=== PATIENT | male | born 1960 | race Two or more races ===

== ENCOUNTER 2016-07-17 12:28 | Emergency (ER) | payer OTHER ==
--- NOTE | 2016-07-17 13:00 | ED ---
Skin Complaint - HPI Summary HPI Summary: Patient was seen at [facility] two days ago for a tick he found. The tick was not engorged and was only attached for approximately 2 hours. He was given a dose of doxycycline which he took today and vomited. He is concerned he needs another antibiotic. He denies rash, fever, chills or joint pain. - History of Current Complaint Chief Complaint: EDRashSkinAbscess Time Seen by Provider: 07/17/16 12:43 Stated Complaint: TICK BITE Hx Obtained From: Patient Onset/Duration: Started Hours Ago Skin Exposure Onset/Duration: Hours Ago Timing: Intermittent Onset Severity: Mild Current Severity: None Pain Intensity: 0 Aggravating Symptom(s): Nothing Alleviating Symptom(s): Nothing Associated Signs & Symptoms: Negative Related History: Possible Reaction to: Insect - Allergy/Home Medications Allergies/Adverse Reactions: Allergies Allergy/AdvReac Type Severity Reaction Status Date / Time Penicillins Allergy Severe Rash Verified 07/17/16 12:31 PMH/Surg Hx/FS Hx/Imm Hx Previously Healthy: Yes Endocrine/Hematology History: Denies: Hx Anticoagulant Therapy Infectious Disease History: No Infectious Disease History: Denies: Traveled Outside the [place] in Last 30 Days - Family History Known Family History: Positive: None - Social History Occupation: Employed Full-time Lives: With Family Alcohol Use: None Substance Use Type: Reports: None Smoking Status (MU): Heavy Every Day Tobacco Smoker Cessation Counseling: Patient Advised to Stop Review of Systems All Other Systems Reviewed And Are Negative: Yes Physical Exam Triage Information Reviewed: Yes Vital Signs On Initial Exam: Initial Vitals Temp Pulse Resp BP Pulse Ox 98.7 F 108 16 140/88 99 07/17/16 12:31 07/17/16 12:31 07/17/16 12:31 07/17/16 12:31 07/17/16 12:31 Vital Signs Reviewed: Yes Appearance: Positive: Well-Appearing, No Pain Distress, Well-Nourished Skin: Positive: Warm, Skin Color Reflects Adequate Perfusion, Dry, Soft, Erythema @ - pinpoint area of erythema without drainage Head/Face: Positive: Normal Head/Face Inspection Eyes: Positive: EOMI, JUSTYNA, Conjunctiva Clear ENT: Positive: Hearing grossly normal Respiratory/Lung Sounds: Positive: Breath Sounds Present Cardiovascular: Positive: RRR Musculoskeletal: Positive: Strength/ROM Intact. Negative: Edema Left, Edema Right Neurological: Positive: Sensory/Motor Intact, Alert, Oriented to Person Place, Time, NV Bundle Intact Distally, Normal Gait Psychiatric: Positive: Affect/Mood Appropriate AVPU Assessment: Alert Diagnostics - Vital Signs Vital Signs Temp Pulse Resp BP Pulse Ox 07/17/16 12:41 98.7 F 108 16 140/88 99 07/17/16 12:31 98.7 F 108 16 140/88 99 - Laboratory Lab Statement: Any lab studies that have been ordered have been reviewed, and results considered in the medical decision making process. Course/Dx - Course Course Of Treatment: I discussed with the patient that he should not need another antibiotic because the tick was attached for less than 36 hours, and was not engorged. I encouraged him to watch for signs of Lyme disease and follow -up as needed. - Differential Diagnoses - Skin Complaint Differential Diagnoses: Abscess, Angioedema, Cellulitis, Foreign Body, Local Allergic Reaction, MRSA, Tick Born Illness, Urticaria - Diagnoses Provider Diagnoses: Tick bite Discharge - Discharge Plan Condition: Stable Disposition: HOME Patient Education Materials: Tick Bite (ED) Referrals: No Primary Care Phys,NOPCP [Primary Care Provider] - Additional Instructions: Please follow-up with your primary care provider if your develop symptoms that are consistent with Lyme disease.
[2016-07-17 13:01] VITALS: BP 120/70
== END 2016-07-17 12:57 | disposition home or self-care (01) ==
LOC: ED 12:28
DX: S30.861A Insect bite (nonvenomous) of abdominal wall, initial encounter (principal); W57.XXXA Bitten or stung by nonvenomous insect and other nonvenomous arthropods, initial encounter; Y93.9 Activity, unspecified; Y92.9 Unspecified place or not applicable; Y99.9 Unspecified external cause status; F17.210 Nicotine dependence, cigarettes, uncomplicated
CPT/HCPCS: 99281

== ENCOUNTER 2018-02-01 08:19 | Inpatient (IN) | payer OTHER ==
[2018-02-01] MEDS ORDERED: NS 0.9% 500 ML* 500 ML IV ONE (08:38)
--- NOTE | 2018-02-01 08:39 | ED ---
Abdominal Pain/Male - HPI Summary HPI Summary: Patient is a 57-year-old male who presents to emergency department for abdominal distention and shortness of breath times several weeks. Patient is homeless and [place] in [place]. Pt. does not have a PCP and has not seen a doctor in years. Pt. admits to a history of heavy alcohol use and states he stopped drinking about 1-2 weeks ago. Pt. denies fever, chills, N/V, CP. Notes SOB and leg swelling. Symptoms are moderate in severity. Activity makes sxs worse. Nothing makes symptoms better. He has no known past medical hx. - History of Current Complaint Chief Complaint: EDAbdPain Stated Complaint: LEG SWELLING/ABD BLOATING Time Seen by Provider: 02/01/18 08:33 Hx Obtained From: Patient Pain Intensity: 9 - Allergies/Home Medications Allergies/Adverse Reactions: Allergies Allergy/AdvReac Type Severity Reaction Status Date / Time Penicillins Allergy Rash Verified 02/01/18 08:31 Home Medications: Home Medications NK [No Home Medications Reported] 02/01/18 [History Confirmed 02/01/18] PMH/Surg Hx/FS Hx/Imm Hx Previously Healthy: Yes Endocrine/Hematology History: Denies: Hx Anticoagulant Therapy Infectious Disease History: No Infectious Disease History: Denies: Traveled Outside the [place] in Last 30 Days - Family History Known Family History: Positive: None, Non-Contributory - Social History Occupation: Unemployed Lives: Alone Alcohol Use: None Substance Use Type: Reports: None Smoking Status (MU): Heavy Every Day Tobacco Smoker Review of Systems Constitutional: Negative Negative: Fever, Chills Eyes: Negative ENT: Negative Cardiovascular: Negative Negative: Palpitations, Chest Pain Positive: Shortness Of Breath. Negative: Cough Positive: Abdominal Pain. Negative: Vomiting, Diarrhea, Nausea Genitourinary: Negative Musculoskeletal: Negative Skin: Negative Neurological: Negative All Other Systems Reviewed And Are Negative: Yes Physical Exam Triage Information Reviewed: Yes Vital Signs On Initial Exam: Initial Vitals Temp Pulse Resp BP Pulse Ox 98.4 F 117 18 129/94 100 02/01/18 08:24 02/01/18 08:24 02/01/18 08:24 02/01/18 08:24 02/01/18 08:24 Vital Signs Reviewed: Yes Appearance: Positive: Ill-Appearing - Pt. sitting up in bed, appears SOB with speaking. Skin is jaundice appearing. Skin: Positive: Warm, Dry Head/Face: Positive: Normal Head/Face Inspection Eyes: Positive: EOMI, Other: - Icterus bilaterally. Neck: Positive: Supple Respiratory/Lung Sounds: Positive: Other - Mild diffuse expiratory wheeze throughout. Cardiovascular: Positive: Tachycardia Abdomen Description: Positive: Other: - Abdomen is markedly distended and firm. Musculoskeletal: Positive: Other - Plus 2 pitting edema bilaterally. Procedures - Procedure Summary Procedure Summary: Abdominal paracentesis: Procedure performed with Dr. Corado. Consent was obtained. Pt. was placed in supine position. Right lower quadrant was cleaned and sterilely prepped. 5 cc 1% lidocaine used to anesthetize skin. Small, 0.5cm incision made superficially. Guide wire and catheter advanced. Sharif fluid was aspirated and guide wire removed. 3 L of sharif fluid drained. Specimen sent to lab. Catheter was removed and dressing placed. Pt. tolerated well. Albumin ordered. Diagnostics - Vital Signs Vital Signs Temp Pulse Resp BP Pulse Ox 02/01/18 08:24 98.4 F 117 18 129/94 100 - Laboratory Result Diagrams: 02/01/18 14:20 02/01/18 08:59 Lab Statement: Any lab studies that have been ordered have been reviewed, and results considered in the medical decision making process. Abdominal Pain Fem Course/Dx - Course Course Of Treatment: Pt. presenting with obvious abd. ascites and jaundice. He is afebrile. BP stable. Tachy in the one teens to twenties. Pt. examined by Dr. Corado as well. Will perform abd. paracentesis for fluid evaluation and for symptomatic relief. Paracentesis performed as noted above. IV albumin ordered. Will also cover with antibx for possible SBP. Hospitalist was consulted, Dr. Galvez, who has accepted admission. Pt. has remained stable in the ED. Labs show mild anemia. Normal WBC. Mildly elevate liver enzymes. Total bilirubin is 17. ECG done at 0852 shows a sinus tachycardia 108bpm, normal axis, appropriate intervals, no ST elevation or depression. CT abd./pelvis per radiology: IMPRESSION: 1. HETEROGENEOUS LOW-ATTENUATION LIVER. THIS LIKELY REPRESENTS HETEROGENEOUS CIRRHOTIC. CHANGE, THOUGH HETEROGENEOUS FATTY INFILTRATION AND INFILTRATIVE NEOPLASM MAY GIVE A. SIMILAR APPEARANCE. RECOMMEND CONSIDERATION OF FURTHER EVALUATION WITH CONTRAST-ENHANCED. MRI OF THE ABDOMEN IN THE NONACUTE SETTING. 2. EVIDENCE OF PORTAL HYPERTENSION, WITH RECANALIZATION OF THE UMBILICAL VEIN. 3. 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
[2018-02-01 09:10] LABS: ABS Basophils 0.1 10^3/ul (0-0.2); ABS Eosinophils 0 10^3/ul (0-0.6); ABS Lymphocytes 0.7 10^3/ul (1.0-4.8); ABS Monocytes 0.8 10^3/ul (0-0.8); ABS Nucleated RBC 0 10^3/ul; Eosinophil % 0.5 % (0-6); Hematocrit 36 % (42-52); Hemoglobin 12.1 g/dl (14.0-18.0); Lymphocyte % 8.1 % (25-47); Mean Corpuscular HGB Conc 34 g/dl (31-36); Mean Corpuscular Hemoglobin 34 pg (27-31); Mean Corpuscular Volume 99 fL (80-94); Mean Platelet Volume 8.4 fL (7.4-10.4); Nucleated Red Blood Cells % 0; Platelet Count 138 10^3/ul (150-450); Red Blood Count 3.62 10^6/ul (4.00-5.40); Red Cell Distribution Width 17 % (10.5-15); White Blood Count 8.6 10^3/ul (3.5-10.8)
[2018-02-01 09:34] LABS: EGFR Non-African American 63.4 (>60)
[2018-02-01] MEDS ORDERED: Albumin Human 5%* 12.5 GM/250 ML BTL IV ONE (09:51)
[2018-02-01] MEDS ORDERED: Iohexol 300* (CONTRAST) 10 ML SDV IV ONE (10:03)
[2018-02-01] MEDS ORDERED: Levofloxacin 750 MG IVPREMIX(* 750 MG/150 ML BAG IVPB ONE (10:10)
[2018-02-01] MEDS ORDERED: metroNIDAZOLE IV 500 MG/100ML* 500 MG/100 ML BAG IVPB ONE (10:11)
--- NOTE | 2018-02-01 10:41 | ED ---
Progress - Progress Note Progress Note: I supervised the PA and performed a history and physical exam. Pt is an alcoholic with respiratory difficulty and grossly distended abdomen. A physical exam revealed jaundice, icterus, heavy ascites in abdomen, LE edema, and minimal distress. Performed a paracentesis. Admit to Dr. Galvez for liver failure. Course/Dx - Course Course Of Treatment: I supervised the care of the physician events and promotions assistant and I personally performed mora aspects of the procedure. I was present throughout the mora portions of the procedure - Diagnoses Provider Diagnoses: Cirrhosis of liver with ascites, Ascites - Provider Notifications Discussed Care Of Patient With: Judi Galvez Time Discussed With Above Provider: 10:00 Instructed by Provider To: Admit As Inpatient Discharge - Sign-Out/Discharge Documenting (check all that apply): Patient Departure - Admit - Discharge Plan Condition: Fair Disposition: ADMITTED TO [facility] - Billing Disposition and Condition Condition: FAIR Disposition: Admitted to [facility] - Attestation Statements Document Initiated by Scribe: Yes Documenting Scribe: Yanet Haley Provider For Whom Trinidadibe is Documenting (Include Credential): Denis Corado MD Scribe Attestation: Yanet Monzon, scribed for Denis Corado MD on 02/01/18 at 1909. Scribe Documentation Reviewed: Yes Provider Attestation: The documentation as recorded by the Yanet esquivel accurately reflects the service I personally performed and the decisions made by me, Denis Corado MD
[2018-02-01] MEDS ORDERED: oxyCODONE/Acetamin 5/325 MG* TAB PO ONE (11:46)
[2018-02-01] MEDS ORDERED: Albuterol 2.5 MG/3 ML NEB.SOL* (0.083%) INH PRN (11:47)
[2018-02-01] MEDS ORDERED: LORazepam TAB(*) 1 MG PO SCH (12:00)
[2018-02-01 12:21] LABS: INR 1.52 (0.77-1.02)
[2018-02-01] MEDS ORDERED: Morphine VIAL* 4 MG/ML VIAL (1 ml vial) IV PRN (13:51)
[2018-02-01] MEDS: Furosemide IV* 10 MG/ML 2 ML VIAL (20 MG) IV SLOW PU SCH (14:12)
[2018-02-01 14:55] LABS: Hematocrit 32 % (42-52)
[2018-02-01] MEDS: Heparin VIAL(*) 5000 UNITS/ML VIAL (FIVE THOUSAND) SUBCUT SCH ×2 (15:18→21:26)
[2018-02-01 16:23] LABS: Urine Appearance Clear; Urine Blood Negative (Negative); Urine Color Yellow; Urine Ketones Negative (Negative); Urine Protein Negative (Negative); Urine Specific Gravity 1.008 (1.010-1.030); Urine Urobilinogen Negative (Negative)
--- NOTE | 2018-02-01 19:08 | HP ---
AMENDED REPORT NOW INCLUDES DESIGNATED COSIGNER CC: Dr. Walter; Dr. Lainez * HISTORY AND PHYSICAL: DATE OF ADMISSION: 02/01/18 PRIMARY CARE PROVIDER: None. ATTENDING PHYSICIAN WHILE IN THE HOSPITAL: Judi Gonzalez MD * (report dictated by Cuong Solano NP). CONSULTING SURGEON: Dr. Walter. CONSULTING BOOKKEEPING CLERKS SUPERVISOR: Dr. Lainez. CHIEF COMPLAINT: "My abdomen is swollen." HISTORY OF PRESENTING ILLNESS: Mr. Nixon is a 57-year-old male patient, who his homeless and currently [place] the [place] here in [place]. He does not seek medical care. He basically says that he presents today because over the last 6 to 7 days, he has noted his belly has been getting more progressively bigger. His legs have been getting more swollen. He says he has been having a hard time taking a deep breath because of the size of his abdomen. He denied having any pain. He says he just feels a lot of pressure from the size of it. He denied any nausea, vomiting, or diarrhea. No fevers, or chills. He does state that it is harder for him to take a deep breath. He also admits to coughing up green sputum particularly in the morning and this has been worse over the last several days. He denied having any chest pain. He denied any orthopnea, but he does admit to shortness of breath, particularly with exertion. He was concerned because of his abdomen was just getting more swollen with swollen legs, and he came into the emergency department today. He does admit to stating that he did drink a glass of wine with dinner last night. He does state that his last time drinking, though previously when I asked him initially he responded it was 3 weeks ago, and that he typically only drinks 1 beer and then he said that shortly thereafter, he drinks 1 beer and sometimes a small bottle of gin with the beer on a daily basis. He denied ever having a history of DTs. Denied any IV drug use as well. He came in and was evaluated here in the ED, there was concern due to the ascites and it was noted that he appeared to have possible alcohol hepatitis. His bilirubin was very elevated. We were asked to evaluate for admission. PAST MEDICAL HISTORY: He denies. PAST SURGICAL HISTORY: He denies. HOME MEDICATIONS: Denied. ALLERGIES: His allergies to medications include PENICILLIN. FAMILY HISTORY: He says his mother is secondary to splenomegaly. He did not know what caused this splenomegaly. His father is alive and in [place], and to his knowledge he is healthy. SOCIAL HISTORY: He does admit to smoking about half a pack a day since he was 11 years old. He does state that he does drink a beer and gin nightly, but he said has not drunk in over 3 weeks, but then again, he said to me, he did have wine last night. He denied any IV drug use. Again, he is homeless. He does not appoint a surrogate decision maker at this point. REVIEW OF SYSTEMS: There is no documented fever. He denied having any significant weight change. There is no double vision. He denies having any ear discharge. There was no rhinorrhea, but he is admitting to a cough with mucopurulent-type sputum. He denied having any chest pain. He does admit to shortness of breath, particularly with exertion. He denies any abdominal pain. He does admit to have abdominal swelling. He denied having any fevers or again chills. No dysuria. No frequency. No seizure. No loss of consciousness. No pruritus, and no skin ulcerations. Review of 14 systems was completed, all others negative. PHYSICAL EXAMINATION GENERAL: At this time, Mr. Nixon is a 57-year-old male patient. He appears to be older than stated age. He appears to be dishevelled and unkempt. He does not appear to be in any acute distress. VITAL SIGNS: Blood pressure 113/77, pulse of 105, respirations were 24, his O2 saturation was 96% on room air, and his temperature was 98.4. HEENT: Head is atraumatic. Eyes: EOMs are intact. Sclerae again, there was icteric. Pupils are reactive to light. Throat: Oral mucosa appears to be moist. No oropharyngeal erythema. NECK: Supple. LUNGS: He did have rhonchi in the upper lobes. No wheezes or rales. HEART: Sounds S1, S2. Regular rate and rhythm with no murmurs, rubs, or gallops. ABDOMEN: percussion was dull. He does have obvious ascites. He has no tenderness with exception near the paracentesis site. He is tender. Bowel sounds were present, but distant and he does have distention of the abdominal vein. EXTREMITIES: Pulses were 2+. He is moving all 4 extremities. He does have +2 pitting edema bilaterally. NEUROLOGICALLY: He is awake. He is alert. He is oriented x3. His tongue is midline. His field operations coordinator were equal. He had no gross focal deficits. SKIN: His skin was intact. LABORATORY DATA/DIAGNOSTIC STUDIES: Labs, WBC of 8.6, RBC of 3.62, hemoglobin of 12.1, hematocrit of 36, his platelet count was 138. His INR is pending with his PTT was 38.5. His sodium was 133, potassium of 3.7, chloride 100, bicarb 26. BUN was 11, creatinine was 1.18, I do not have a baseline. Glucose was 95, lactic 1.4, calcium 8.3. His total bili was 17.8, AST 144, ALT 51, alk phos was 322. Troponin was 0.01. CRP is 77. Albumin of 2.6. His total white cell in his peritoneal fluid was 137, 12 neutrophils were noted. His toxicology alcohol level was pending. He did have imaging here in the ED. CT abdomen and pelvis showed heterogenous low attenuation liver likely represents heterogenous cirrhotic change. No heterogenous fatty infiltration and infiltrative neoplasm. Given similar appearance, recommend consideration for further evaluation with MRI of the abdomen with contrast in a nonacute setting. There was evidence of portal hypertension with re-cannulation of the umbilical vein and large amount of ascites were noted. He did have a chest x-ray obtained today, which showed low lung volumes, but no active cardiopulmonary disease was reported. His EKG was obtained today, and I do not have a previous for comparison, it does show a sinus tachycardia with a rate of 108. He had no ST elevation. He did have inversions in V4, but no acute changes were noted. No previous for comparison. Old medical records were again reviewed, but limited. ASSESSMENT AND PLAN: Mr. Nixon is a 57-year-old male patient coming into the ED today with complaints of more swelling of his abdomen. On evaluation, he was found to have possible alcoholic hepatitis. We were asked to evaluate for admission. He will be admitted under inpatient status for: 1. Hepatitis. Again, this appears to be related to alcohol use; however, I did touch base with GI, it seems to be more of a chronic picture based on lab work. We will go ahead and hold on steroids, but I will give him Lasix 20 IV daily with hold parameters. I have asked surgery to evaluate the patient either today or tomorrow for another paracentesis. We will repeat his bili tomorrow and his liver function test. We will get him on Lasix with hopefully adding possibly nadolol, possibly spironolactone, but I will get the input from the GI first. I am checking alcohol level. I would like to calculate his MELD score, but I need an INR, which I have ordered; and I am also going to check an acute hepatitis panel as well to make sure I am not dealing with hepatitis B or C, and again, we will have GI evaluate and I will continue to follow. 2. Alcoholism. Again, he does state that he does drink on a daily basis. He says he again in one breath he said that he drank 3 weeks, but then in another breath he said that he had wine last night. I have added on an alcohol level. I am going to have social work to see the patient and put him on the [facility] protocol as well and we will give him folic acid and again thiamine and folate for the patient, and continue to follow. 3. Social issues. I did touch base with social work. The patient is homeless , has no PCP, and will need help with this and also substance abuse counseling in form of alcohol and they are on board. 4. Tobacco abuse. I did offer smoking cessation and counseling. In addition to this, I offered nicotine replacement therapy, which he refused. 5. DVT prophylaxis. I have ordered heparin subcu. 6. Question of upper respiratory infection. Again, he is coughing up mucopurulent sputum. He did have rhonchi on exam. I am going to put him on Rocephin and azithro, and I will send of his sputum when able and we will check a flu swab. 7. Code status: Full code. 8. Fluid, electrolytes, and nutrition. He can have a clear liquid diet. TIME SPENT: Time spent on admission was 60 minutes, greater than half time spent [id number] with the patient, obtaining my history and physical, other half time was spent going over the plan of care with the patient and implementing the plan of care. I did discuss the plan of care with my attending, Dr. Gonzalez, she is in agreement. CUONG SOLANO, SATURATION DIVER [id number]/[facility] #: [id number] SONALI
[2018-02-01 20:13] LABS: Hematocrit 33 % (42-52); Hemoglobin 11.4 g/dl (14.0-18.0)
[2018-02-02] MEDS: Heparin VIAL(*) 5000 UNITS/ML VIAL (FIVE THOUSAND) SUBCUT SCH ×3 (06:37→20:35)
[2018-02-02 06:42] LABS: INR 1.8 (0.77-1.02)
[2018-02-02 07:42] LABS: ABS Basophils 0.1 10^3/ul (0-0.2); ABS Eosinophils 0.1 10^3/ul (0-0.6); ABS Lymphocytes 0.7 10^3/ul (1.0-4.8); ABS Monocytes 0.9 10^3/ul (0-0.8); ABS Neutrophils 4.9 10^3/ul (1.5-7.7); ABS Nucleated RBC 0 10^3/ul; Eosinophil % 0.9 % (0-6); Hematocrit 32 % (42-52); Hemoglobin 10.7 g/dl (14.0-18.0); Lymphocyte % 9.9 % (25-47); Mean Corpuscular HGB Conc 34 g/dl (31-36); Mean Corpuscular Hemoglobin 34 pg (27-31); Mean Corpuscular Volume 101 fL (80-94); Mean Platelet Volume 8.3 fL (7.4-10.4); Nucleated Red Blood Cells % 0.1; Platelet Count 94 10^3/ul (150-450); Red Blood Count 3.14 10^6/ul (4.00-5.40); Red Cell Distribution Width 17 % (10.5-15); White Blood Count 6.6 10^3/ul (3.5-10.8)
[2018-02-02] MEDS: Furosemide IV* 10 MG/ML 2 ML VIAL (20 MG) IV SLOW PU SCH (08:01)
[2018-02-02] MEDS: Thiamine TAB* 100 MG TAB PO SCH (08:13)
[2018-02-02] MEDS: cefTRIAXone(*) 1 GM in NS 0.9% 50 ML* 50 ML IVPB SCH (08:13)
[2018-02-02] MEDS: Folic Acid TAB* 1 MG PO SCH (08:13)
[2018-02-02] MEDS: Multivitamins/Minerals TAB PO SCH (08:13)
[2018-02-02] MEDS: Azithromycin IV(*) 500 MG in NS 0.9% 250 ML* 250 ML IVPB SCH (09:17)
--- NOTE | 2018-02-02 14:12 | BRIEFOPN ---
Brief Operative Note - Surgery Procedures: OPERATIVE REPORT PRE-OP: Ascites POST-OP: Same PROCEDURE:Therapeutic Paracentesis-3.5 liter of clear yellow/green fluid drained SURGEON: MD Jose Angel ANESTHESIA:Local ASST:none IVF:none EBL:trace SPECIMEN:none DRAIN: none WOUND CLASS:One COMPLICATIONS: none TO PACU
[2018-02-02] MEDS ORDERED: Morphine VIAL* 10 MG/ML 1 ML VIAL ONE (14:18)
--- NOTE | 2018-02-02 16:09 | CONS ---
CONSULTATION REPORT: DATE OF CONSULT: 02/01/18 REQUESTING PHYSICIAN: Cuong Solano NP INDICATION: Cirrhosis. NARRATIVE: Mr. Norris is a 57-year-old gentleman who is a resident of "[facility] in the [place] who presents to the emergency room with increased abdominal girth. He states that over the past week he has noticed that his abdomen is becoming larger in addition to his lower extremities. He states that he feels very distended and bloated and he is having some shortness of breath. He describes bloating but no pain, no nausea, no vomiting. He denies any change in his bowel habits. No blood in his stool. No black or tarry stools. He denies any confusion. He is an alcoholic who has had withdrawal symptoms in the past. PAST MEDICAL HISTORY: None other than alcoholism. PAST SURGICAL HISTORY: The patient denies any surgeries in the past. MEDICATIONS: None. ALLERGIES: He tells me PENICILLIN. FAMILY HISTORY: Pretty much unknown at this time. He believes his mother had an enlarged spleen. He is unsure if there are any medical issues with his father. SOCIAL HISTORY: He smokes tobacco. He drinks alcohol. He is homeless. REVIEW OF SYSTEMS: Twelve systems were reviewed other than that mentioned in the HPI were unremarkable. PHYSICAL EXAM: Temperature is 97.7, blood pressure is 100/58, pulse of 95, respiratory rate of 16, O2 sat is 99%. General: Dishevelled appearing male, appears older than stated age. Alert, oriented, pleasant, fluent. HEENT: Mucous membranes are moist without lesions, ulcers, or exudate. Neck is supple. Trachea is midline. Dentition is poor. Lungs: Good breath sounds bilaterally. No wheezes, rales, or rhonchi. Heart: Regular, rate and rhythm. Abdomen: Dull flanks, positive bowel sounds, soft, mildly tender. No masses. No hepatosplenomegaly palp. Extremities: Lower extremity 1 to 2+ edema. No rashes. Neuro: No asterixis. DIAGNOSTIC STUDIES/LAB DATA: Of note, white count is 8.6, hemoglobin is 12.1, platelets of 138, INR is 1.52. Chemistry shows a sodium of 133, creatinine of 1.18. His bilirubin is 17.8. AST is 144, ALT is 51, alk phos is 322. C-reactive protein is 77. He did have a paracentesis which shows 137 white blood cells, 9 rbc's, neutrophils of 12. He also had a CT abdomen and pelvis which revealed a heterogenous low attenuation liver cirrhosis likely fatty infiltration, potentially portal hypertension, large amount of ascites. ASSESSMENT AND PLAN: Mr. Norris is a 57-year-old gentleman who has cirrhosis likely secondary to alcoholism. He continues to drink. Regarding his ascites, he has had a paracentesis. I would recommend we attempt diuretics; however, we need to watch his kidney function closely. There is no evidence of encephalopathy. No evidence of active GI bleeding. At some point, he will need an upper endoscopy to evaluate for varices. He also needs to abstain from alcohol. Unfortunately, he is homeless and that may be the biggest determent to his health at this point. We will continue to follow along. [id number]/[facility] #: [id number] SONALI
--- NOTE | 2018-02-02 16:31 | PN ---
Subjective Date of Service: 02/02/18 Interval History: Patient seen today, he continues to have increase discomfort of his abdominal distentions. no signs of withdrawal. He states he has not had a drink for 6 weeks. S/p 3 liters paracentesis yesterday. I discussed case with Dr. Walter and will kindly attempt to remove at least another 3 liters today. Patient has no fever no rebound. Taking po and the patient is inquiring about SSI benefit Past Medical History: Unchanged from Admission Objective Active Medications: Albuterol (Ventolin 2.5 Mg/3 Ml Neb.Kiara*) 2.5 mg INH Q2H PRN PRN Reason: SOB/WHEEZING Folic Acid (Folvite Tab*) 1 mg PO DAILY [facility] Last Admin: 02/02/18 08:13 Dose: 1 mg Furosemide (Lasix Tab*) 40 mg PO DAILY [facility] Heparin Sodium (Porcine) (Heparin Vial(*)) 5,000 units SUBCUT Q12HR [facility] Ceftriaxone Sodium 1 gm/ (Sodium Chloride) 50 mls @ 200 mls/hr IVPB Q24H [facility] Last Admin: 02/02/18 08:13 Dose: 200 mls/hr Azithromycin 500 mg/ Sodium (Chloride) 250 mls @ 250 mls/hr IVPB Q24H [facility] Last Admin: 02/02/18 09:17 Dose: 250 mls/hr Albumin Human (Albumin Human 25%*) 25 gm in 100 mls @ 100 mls/hr IV Q6H [facility] Stop: 02/03/18 16:59 Lorazepam (Ativan Tab(*)) 0 - 6 mg PO .PER [facility] PROTOCOL [facility]; Protocol Multivitamins/Minerals (Theragran/Minerals Tab*) 1 tab PO DAILY [facility] Last Admin: 02/02/18 08:13 Dose: 1 tab Pantoprazole Sodium (Protonix Tab (Nf)) 40 mg PO DAILY [facility] Spironolactone (Aldactone Tab*) 25 mg PO BEDTIME [facility] Thiamine HCl (Vitamin B-1 Tab*) 100 mg PO DAILY [facility] Last Admin: 02/02/18 08:13 Dose: 100 mg Vital Signs - 8 hr 02/02/18 02/02/18 11:25 14:45 Temperature 98.9 F 99.7 F Pulse Rate 102 101 Respiratory 18 16 Rate Blood Pressure 94/61 98/64 (mmHg) O2 Sat by Pulse 99 100 Oximetry Oxygen Devices in Use Now: None Appearance: Awake, alert. no acute distress Eyes: - - Icteric sclera, EOMI Ears/Nose/Mouth/Throat: - - poor dentition Neck: Trachea Midline Respiratory: - - crackles and bases. no wheezing Cardiovascular: NL Sounds; No Murmurs; No JVD, RRR Abdominal: - - distended. ascites and positive caput medusa suggestive of portal hypertension Extremities: - - + 3 edema Neurological: Alert and Oriented x 3 Result Diagrams: 02/02/18 05:53 02/02/18 05:53 Microbiology and Other Data: Microbiology 02/01/18 09:10 Aerobic Blood Culture - Preliminary Blood Venous No Growth Day 1 Anaerobic Blood Culture - Preliminary No Growth Day 1 02/01/18 09:22 Sterile Body Fluid Culture - Preliminary Paracentesis Fluid No Growth Day 1 Sterile Body Fluid Culture - Preliminary No Growth Day 1 Gram Stain - Final Body Fluid Culture - Final 02/01/18 08:59 Aerobic Blood Culture - Preliminary Blood Venous No Growth Day 1 Anaerobic Blood Culture - Preliminary No Growth Day 1 02/02/18 03:15 Gram Stain - Final Sputum 02/01/18 12:30 Legionella Urinary Antigen - Final Urine Negative Legionella Antigen Streptococcus pneumoniae Ag Screen - Final Negative S. pneumo Antigen 02/01/18 12:30 Influenza Types A,B Antigen - Final Nasal Specimen received for Influenza A/B Molecular testing Assess/Plan/Problems-Billing Assessment: 57 y/o male homeless presented to our ED for increase leg edema, increase abdominal girth with known history of chronic ETOH abuse admitted for decompensated liver cirrhosis with no prior active medical care - Patient Problems (1) Liver cirrhosis, alcoholic Current Visit: Yes Status: Acute Code(s): K70.30 - ALCOHOLIC CIRRHOSIS OF LIVER WITHOUT ASCITES SNOMED Code(s): 603426144 Comment: - this is his first admission for his diagnosis - Patient denies any outpatient medical care. He has very poor support system which makes his ESLD treatment very complicated. - Nonetheless, I initiate treatment with Lasix 40 mg daily and aldactone 25 mg daily. - Agree to continue with MVI/Thiamine/Folate - I discussed with our resident care spec to help assist with medications coverage, PCP follow up, and SSI benefit - I did speak to Dr Aleman from [facility] elastic yarn twister helper and I reviewed his case. He agreed with the above and recommended to implement albumin infusion to help mobilize his ascite until albimin 3.5 or greater is achieve. I placed him on albumin 25% Q6hrs. this will need to be revisited daily. He does not think the patient will be a candidate until he does have good social support and abstein form ETOH at least 6 months. However; he kindly and recommended to refer him to his outreach clinic in [place] for hepatic care management. Appointment can be made via [facility] transplant center to set up appointment with Dr. Aleman clinic in [place] once discharged. (2) Ascites due to alcoholic cirrhosis Current Visit: Yes Status: Acute Code(s): K70.31 - ALCOHOLIC CIRRHOSIS OF LIVER WITH ASCITES SNOMED Code(s): 9646452710040031 Comment: - secondary to alcohol cirrhosis - s/p paracentesis 02/01 (3 L); 02/02/18 (3.5 L) - Implemented today 02/02/18 Lasix, aldactone and albumin infusion as outline in the cirrhosis plan - I did implement protonix for GI prophylaxis as he does have caput medusa suggestive of portal hypertension and the likely he does have esophageal varices. Once and if BP can tolerate we may need to add propranol (3) Homeless Current Visit: Yes Status: Acute Code(s): Z59.0 - HOMELESSNESS SNOMED Code (s): 91953902 Comment: - social consult. I am not sure if it can take place or not but he would be a good candidate for placement if agreable and it may help acheive two goals (social support and abstence from alcohol) (4) DVT prophylaxis Current Visit: Yes Status: Acute Code(s): NHS6889 - SNOMED Code(s): 842357632 Comment: - I decreased his heparin to bid and if H/H or platelet drop we may need to discontinue and encourage ambulations
[2018-02-02] MEDS ORDERED: Albumin Human 25%* 25 GM/100 ML BTL IV SCH (17:00)
[2018-02-02] MEDS ORDERED: Furosemide TAB* 40 MG PO SCH (17:00)
[2018-02-02] MEDS: Albumin Human 25%* 25 GM/100 ML BTL IV SCH (19:08)
[2018-02-02] MEDS: Omeprazole CAP* 20 MG PO SCH (20:34)
[2018-02-02] MEDS ORDERED: Spironolactone TAB* 25 MG PO SCH (21:00)
[2018-02-02] MEDS ORDERED: Potassium Chlor TAB* 20 MEQ TAB.ER PO ONE (21:45)
[2018-02-02] MEDS: Furosemide TAB* 40 MG PO SCH (22:26)
[2018-02-03] MEDS: Albumin Human 25%* 25 GM/100 ML BTL IV SCH ×4 (01:09→20:52)
[2018-02-03 06:23] LABS: ABS Basophils 0.1 10^3/ul (0-0.2); ABS Eosinophils 0.1 10^3/ul (0-0.6); ABS Lymphocytes 0.7 10^3/ul (1.0-4.8); ABS Monocytes 0.8 10^3/ul (0-0.8); ABS Neutrophils 4.4 10^3/ul (1.5-7.7); ABS Nucleated RBC 0 10^3/ul; Eosinophil % 1.4 % (0-6); Hematocrit 30 % (42-52); Hemoglobin 10.3 g/dl (14.0-18.0); Lymphocyte % 11.5 % (25-47); Mean Corpuscular HGB Conc 35 g/dl (31-36); Mean Corpuscular Hemoglobin 35 pg (27-31); Mean Corpuscular Volume 100 fL (80-94); Mean Platelet Volume 7.9 fL (7.4-10.4); Nucleated Red Blood Cells % 0; Platelet Count 90 10^3/ul (150-450); Red Blood Count 2.99 10^6/ul (4.00-5.40); Red Cell Distribution Width 17 % (10.5-15)
[2018-02-03 06:45] LABS: EGFR Non-African American 69.5 (>60)
[2018-02-03] MEDS: Heparin VIAL(*) 5000 UNITS/ML VIAL (FIVE THOUSAND) SUBCUT SCH ×2 (08:31→20:53)
[2018-02-03] MEDS: Folic Acid TAB* 1 MG PO SCH (08:32)
[2018-02-03] MEDS: Multivitamins/Minerals TAB PO SCH (08:33)
[2018-02-03] MEDS: Omeprazole CAP* 20 MG PO SCH (08:33)
[2018-02-03] MEDS: Furosemide TAB* 40 MG PO SCH (08:33)
[2018-02-03] MEDS: Thiamine TAB* 100 MG TAB PO SCH (08:33)
[2018-02-03] MEDS: cefTRIAXone(*) 1 GM in NS 0.9% 50 ML* 50 ML IVPB SCH (09:16)
[2018-02-03] MEDS: Azithromycin IV(*) 500 MG in NS 0.9% 250 ML* 250 ML IVPB SCH (10:21)
--- NOTE | 2018-02-03 11:13 | OP ---
DATE OF OPERATION: 02/02/18 - ROOM #415 DATE OF : 58 SURGEON: Donell Walter MD ANESTHESIA: 1% lidocaine. PRE-OP DIAGNOSIS: Ascites. POST-OP DIAGNOSIS: Ascites. OPERATIVE PROCEDURE: Therapeutic paracentesis with drainage of little over 3 L of yellow/greenish clear fluid. ESTIMATED BLOOD LOSS: Trace. SPECIMENS: None. DRAINS: None. WOUND CLASSIFICATION: I. BRIEF HISTORY: Mr. Semaj Norris is a 57-year-old gentleman who presented to the emergency room with abdominal distention and discomfort and noted to have a bilirubin of 18. He has a history of alcohol abuse and a CT scan showed marked amount of ascites and also findings probably consistent with cirrhosis. He has had 3 L of fluid drained from his abdominal cavity yesterday and a second request for more drainage was requested by the hospitalist service. The procedure was discussed with the patient and the risks of, but not limited to, bleeding, infection, intraabdominal bowel and visceral injury, sepsis/ peritonitis and discomfort were all explained. DESCRIPTION OF PROCEDURE: The abdomen was marked with indelible ink and preoperative consent was obtained. He was placed in the slight sitting upright position in the supine position. Bedside ultrasound was then performed, which showed a large amount of ascitic fluid mainly in the right and the left lower quadrants of the abdomen. I chose the right lower quadrant and this area was prepped and draped in the usual sterile fashion. A time-out verification was completed. 1% lidocaine with epinephrine was infiltrated into the entire thickness of the abdominal wall and a small carolina was made with 11-blade knife in the skin. A 8-Slovak catheter over the needle was then passed into the abdominal cavity under aspiration until the fluid was aspirated. The catheter was fed in the abdominal cavity as the needle was withdrawn and the catheter tubing was attached to the suction canisters and a little over 3 L of greenish yellowish fluid was drained. Once this was complete, the catheter was removed. Firm pressure was held to achieve hemostasis. Once this was done, a sterile Band-Aid was applied. The patient tolerated the procedure well. [id number]/CPS #: [id number] MTDD
[2018-02-03] MEDS ORDERED: Potassium Chloride LIQUID* 20 MEQ PACKET PO SCH (11:25)
[2018-02-03] MEDS ORDERED: Potassium Phosphate IV* 10 MMOLE in NS 0.9% 250 ML* 250 ML IVPB ONE (12:00)
--- NOTE | 2018-02-03 16:00 | PN ---
Subjective Date of Service: 02/03/18 Interval History: Patient is feeling well. Decreased distention, increased ability to take a deep breath. Patient has leaking from one of his paracentesis sites. Patient states a continued commitment to alcohol abstinence. Patient denies F/C, N/V, CP, SOB, dizziness, dysuria. Patient states his urine is improving in clarity and increasing in frequency. Patient understands the limitations on the possibility of liver transplantation. Past Medical History: Unchanged from Admission Objective Active Medications: Al Hydrox/Mg Hydrox/Simethicone (Maalox Plus*) 30 ml PO Q6H PRN PRN Reason: INDIGESTION Albuterol (Ventolin 2.5 Mg/3 Ml Neb.Kiara*) 2.5 mg INH Q2H PRN PRN Reason: SOB/WHEEZING Folic Acid (Folvite Tab*) 1 mg PO DAILY [facility] Last Admin: 02/03/18 08:32 Dose: 1 mg Furosemide (Lasix Tab*) 20 mg PO DAILY [facility] Heparin Sodium (Porcine) (Heparin Vial(*)) 5,000 units SUBCUT Q12HR [facility] Last Admin: 02/03/18 08:31 Dose: 5,000 units Ceftriaxone Sodium 1 gm/ (Sodium Chloride) 50 mls @ 200 mls/hr IVPB Q24H [facility] Last Admin: 02/03/18 09:16 Dose: 200 mls/hr Azithromycin 500 mg/ Sodium (Chloride) 250 mls @ 250 mls/hr IVPB Q24H [facility] Last Admin: 02/03/18 10:21 Dose: 250 mls/hr Potassium Phosphate 10 mmole/ (Sodium Chloride) 253.3333 mls @ 42 mls/hr IVPB ONCE ONE Stop: 02/03/18 18:01 Last Admin: 02/03/18 12:24 Dose: 42 mls/hr Albumin Human (Albumin Human 25%*) 25 gm in 100 mls @ 100 mls/hr IV Q6H [facility] Multivitamins/Minerals (Theragran/Minerals Tab*) 1 tab PO DAILY [facility] Last Admin: 02/03/18 08:33 Dose: 1 tab Omeprazole (Prilosec Cap*) 20 mg PO DAILY [facility] Last Admin: 02/03/18 08:33 Dose: 20 mg Potassium Chloride (Klor-Con Liquid*) 40 meq PO DAILY [facility] Last Admin: 02/03/18 12:23 Dose: 40 meq Spironolactone (Aldactone Tab*) 50 mg PO BEDTIME [facility] Thiamine HCl (Vitamin B-1 Tab*) 100 mg PO DAILY [facility] Last Admin: 02/03/18 08:33 Dose: 100 mg Vital Signs - 8 hr 02/03/18 02/03/18 02/03/18 07:59 08:20 09:29 Temperature 99.1 F 98.5 F Pulse Rate 94 94 Respiratory 18 Rate Blood Pressure 105/59 93/68 (mmHg) O2 Sat by Pulse 100 Oximetry 02/03/18 09:47 Temperature 97.5 F Pulse Rate 86 Respiratory Rate Blood Pressure 96/57 (mmHg) O2 Sat by Pulse 98 Oximetry Oxygen Devices in Use Now: None Appearance: Patient is a 57yo male who appears older than stated age and is sitting in the bed in [facility]. Patient has signficant jaundice. Eyes: PERRLA, - - Icterus. Ears/Nose/Mouth/Throat: NL Teeth, Lips, Gums Neck: NL Appearance and Movements; NL JVP, Trachea Midline Respiratory: Symmetrical Chest Expansion and Respiratory Effort, Clear to Auscultation Cardiovascular: NL Sounds; No Murmurs; No JVD, RRR, - - 3+ Edema. Abdominal: - - Distended, Slightly tender, Gross hepatomegaly. Lymphatic: No Cervical Adenopathy Extremities: No Clubbing, Cyanosis Skin: No Nodules or Sclerosis, - - Leaking paracentesis site. Neurological: Alert and Oriented x 3, NL Sensation, NL Muscle Strength and Tone , - - CN II-XII intact. Result Diagrams: 02/03/18 05:44 02/03/18 05:44 Microbiology and Other Data: Microbiology 02/01/18 09:10 Aerobic Blood Culture - Preliminary Blood Venous No Growth Day 1 Anaerobic Blood Culture - Preliminary No Growth Day 1 02/01/18 09:22 Sterile Body Fluid Culture - Preliminary Paracentesis Fluid No Growth Day 1 Sterile Body Fluid Culture - Preliminary No Growth Day 1 Gram Stain - Final Body Fluid Culture - Final 02/01/18 08:59 Aerobic Blood Culture - Preliminary Blood Venous No Growth Day 1 Anaerobic Blood Culture - Preliminary No Growth Day 1 02/02/18 03:15 Gram Stain - Final Sputum 02/01/18 12:30 Legionella Urinary Antigen - Final Urine Negative Legionella Antigen Streptococcus pneumoniae Ag Screen - Final Negative S. pneumo Antigen 02/01/18 12:30 Influenza Types A,B Antigen - Final Nasal Specimen received for Influenza A/B Molecular testing Assess/Plan/Problems-Billing Assessment: 57 y/o male homeless presented to our ED for increase leg edema, increase abdominal girth with known history of chronic ETOH abuse admitted for decompensated liver cirrhosis with no prior active medical care who is S/P 2 paracenteses and is being started on diuretic therapy. - Patient Problems (1) Ascites due to alcoholic cirrhosis Current Visit: Yes Status: Acute Code(s): K70.31 - ALCOHOLIC CIRRHOSIS OF LIVER WITH ASCITES SNOMED Code(s): 3301285308661136 Comment: - Secondary to alcohol cirrhosis - S/P paracentesis 02/01 (3 L); 02/02/18 (3.5 L) - Diuretics started at 20 lasix and 50 spironolactone. - Continue PPI prophylaxis and soft diet - BP would not tolerate BB - Will need surveilance EGD for varices monitoring. - Albumin for goal albumin above 3.5. (2) Liver cirrhosis, alcoholic Current Visit: Yes Status: Acute Code(s): K70.30 - ALCOHOLIC CIRRHOSIS OF LIVER WITHOUT ASCITES SNOMED Code(s): 593175315 Comment: - New diagnosis - Patient denies any outpatient medical care. He has very poor support system which makes his ESLD treatment very complicated. - Begin diuresis as above - Agree to continue with MVI/Thiamine/Folate - Appreciate social work. Will establish with [facility]. - Discussed with Dr Aleman from [facility] - [place] charcoal unloader and reviewed his case. He recommended to implement albumin infusion to help mobilize his ascites until albimin 3.5 or greater is achieve. Continue albumin 25% Q6hrs. this will need to be revisited daily. - Patient will likely not be a candidate until he does have good social support and abstein form ETOH at least 6 months. - Will need close Hepatology follow up and referral to a transplant center when appropriate. (3) Homeless Current Visit: Yes Status: Acute Code(s): Z59.0 - HOMELESSNESS SNOMED Code (s): 72260201 Comment: - Social consult. Patient is pending insurance, housing and follow up plans. (4) Electrolyte abnormality Current Visit: Yes Status: Acute Code(s): E87.8 - OTH DISORDERS OF ELECTROLYTE AND FLUID BALANCE, NEC SNOMED Code(s): 742180433 Comment: - Hypokalemia and Hypophosphatemia - Replace IV (5) DVT prophylaxis Current Visit: Yes Status: Acute Code(s): USE1201 - SNOMED Code(s): 913388233 Comment: - Heparin Subq with platelets above 50K Status and Disposition: Inpatient. Requires close inpatient laboratory monitoring.
[2018-02-03] MEDS: Spironolactone TAB* 25 MG PO SCH (20:46)
[2018-02-03] MEDS: Al Hydrox/Mg Hydrox/Simet LIQ* 30 ML UDC PO PRN (21:26)
[2018-02-04] MEDS: Albumin Human 25%* 25 GM/100 ML BTL IV SCH ×3 (02:35→16:00)
[2018-02-04 06:34] LABS: Corrected Retic Count 1.5 % (0.5-1.5); Hematocrit for Retic CNT 32 % (42-52); Immature Retic Fraction 0.31; RBC Retic Count 3.17 10^6/ul (4.6-6.2)
[2018-02-04 06:37] LABS: ABS Basophils 0.1 10^3/ul (0-0.2); ABS Eosinophils 0.1 10^3/ul (0-0.6); ABS Lymphocytes 0.6 10^3/ul (1.0-4.8); ABS Monocytes 0.8 10^3/ul (0-0.8); ABS Neutrophils 4.6 10^3/ul (1.5-7.7); ABS Nucleated RBC 0 10^3/ul; Eosinophil % 1.6 % (0-6); Hematocrit 32 % (42-52); Hemoglobin 10.9 g/dl (14.0-18.0); Lymphocyte % 9.9 % (25-47); Mean Corpuscular HGB Conc 35 g/dl (31-36); Mean Corpuscular Hemoglobin 35 pg (27-31); Mean Corpuscular Volume 100 fL (80-94); Nucleated Red Blood Cells % 0; Platelet Count 90 10^3/ul (150-450); Red Blood Count 3.16 10^6/ul (4.00-5.40); Red Cell Distribution Width 17 % (10.5-15); White Blood Count 6.1 10^3/ul (3.5-10.8)
[2018-02-04] MEDS ORDERED: Potassium Chloride LIQUID* 20 MEQ PACKET PO SCH (09:00)
[2018-02-04] MEDS: Multivitamins/Minerals TAB PO SCH (09:45)
[2018-02-04] MEDS: Furosemide TAB* 20 MG PO SCH (09:45)
[2018-02-04] MEDS: Heparin VIAL(*) 5000 UNITS/ML VIAL (FIVE THOUSAND) SUBCUT SCH ×2 (09:45→21:38)
[2018-02-04] MEDS: Thiamine TAB* 100 MG TAB PO SCH (09:46)
[2018-02-04] MEDS: Omeprazole CAP* 20 MG PO SCH (09:46)
[2018-02-04] MEDS: Folic Acid TAB* 1 MG PO SCH (09:46)
[2018-02-04] MEDS: Hydrocortisone 1% CREAM* 30 GM TUBE TOPICAL PRN (09:47)
--- NOTE | 2018-02-04 14:20 | PN ---
Subjective Date of Service: 02/04/18 Interval History: HOSPITALIST PROGRESS NOTE Patient seen and examined at bedside. Care reviewed and d/w Radha Kelsey RN. He c/o LE itching, but feels his swelling and abdominal distention are improving. Family History: Unchanged from Admission Social History: Unchanged from Admission Past Medical History: Unchanged from Admission Objective Active Medications: Al Hydrox/Mg Hydrox/Simethicone (Maalox Plus*) 30 ml PO Q6H PRN PRN Reason: INDIGESTION Last Admin: 02/03/18 21:26 Dose: 30 ml Albuterol (Ventolin 2.5 Mg/3 Ml Neb.Kiara*) 2.5 mg INH Q2H PRN PRN Reason: SOB/WHEEZING Folic Acid (Folvite Tab*) 1 mg PO DAILY [facility] Last Admin: 02/04/18 09:46 Dose: 1 mg Furosemide (Lasix Tab*) 20 mg PO DAILY [facility] Last Admin: 02/04/18 09:45 Dose: 20 mg Heparin Sodium (Porcine) (Heparin Vial(*)) 5,000 units SUBCUT Q12HR [facility] Last Admin: 02/04/18 09:45 Dose: 5,000 units Hydrocortisone (Hytone Cream 1%*) 1 applic TOPICAL TID PRN PRN Reason: ITCHING Last Admin: 02/04/18 09:47 Dose: 1 applic Albumin Human (Albumin Human 25%*) 25 gm in 100 mls @ 100 mls/hr IV Q6H [facility] Stop: 02/04/18 15:29 Last Admin: 02/04/18 09:45 Dose: 100 mls/hr Multivitamins/Minerals (Theragran/Minerals Tab*) 1 tab PO DAILY [facility] Last Admin: 02/04/18 09:45 Dose: 1 tab Omeprazole (Prilosec Cap*) 20 mg PO DAILY [facility] Last Admin: 02/04/18 09:46 Dose: 20 mg Potassium Chloride (Klor-Con Liquid*) 40 meq PO BID [facility] Last Admin: 02/04/18 09:46 Dose: 40 meq Spironolactone (Aldactone Tab*) 50 mg PO BEDTIME [facility] Last Admin: 02/03/18 20:46 Dose: 50 mg Thiamine HCl (Vitamin B-1 Tab*) 100 mg PO DAILY [facility] Last Admin: 02/04/18 09:46 Dose: 100 mg Vital Signs - 8 hr 02/04/18 02/04/18 02/04/18 07:23 08:04 08:16 Temperature 98.3 F 97.3 F Pulse Rate 96 108 Respiratory 18 16 16 Rate Blood Pressure 117/68 112/70 (mmHg) O2 Sat by Pulse 100 99 Oximetry 02/04/18 02/04/18 09:57 10:24 Temperature 98.6 F 97.6 F Pulse Rate 93 94 Respiratory 16 16 Rate Blood Pressure 101/66 112/71 (mmHg) O2 Sat by Pulse 98 100 Oximetry Oxygen Devices in Use Now: None Appearance: Middle aged gentleman sitting up in bed in NAD. Eyes: No Scleral Icterus Ears/Nose/Mouth/Throat: Mucous Membranes Moist Neck: Trachea Midline Respiratory: Symmetrical Chest Expansion and Respiratory Effort, Clear to Auscultation Cardiovascular: RRR - Normal S1 and S2 Abdominal: - - Ascites is present, NT, BS+ Extremities: - - Bilateral moderate to severe LE pitting edema Neurological: Alert and Oriented x 3, NL Muscle Strength and Tone Result Diagrams: 02/04/18 06:07 02/04/18 06:07 Assess/Plan/Problems-Billing Assessment: Mr. Norris is a 57 y/o homeless M who presented to ED with c/o increased leg edema, increased abdominal girth with known history of chronic ETOH abuse admitted for decompensated liver cirrhosis with no prior active medical care. - Patient Problems (1) Ascites due to alcoholic cirrhosis Comment: - Secondary to alcoholic cirrhosis. - S/P paracentesis 02/01 (3 L); 02/02/18 (3.5 L). - Continue diuresis with Furosemide 20mg and Spironolactone 50mg. - Monitor I/Os and daily weights. (2) Liver cirrhosis, alcoholic Comment: - Continue MVI/Thiamine/Folate. - Case was discussed with Dr Aleman from [facility] director banking by Dr Witt. He recommended to implement albumin infusion to help mobilize his ascites until albimin 3.5 or greater is achieved. Continue albumin 25% Q6hrs. - Patient needs better social support and abstinence from ETOH at least 6 months. - Will need close Hepatology follow up and referral to a transplant center in the future. (3) Electrolyte abnormality Comment: - Continue to replete. (4) Homeless Comment: - group social worker involved - patient is pending insurance, housing and follow up plans. (5) DVT prophylaxis Comment: - SQ heparin. (6) Full code status Status and Disposition: Inpatient. Requires close inpatient monitoring during more aggressive diuresis.
[2018-02-04] MEDS: KCL 10 MEQ/50 ML IVPREMIX* 10 MEQ/50 ML BAG IV SCH ×2 (16:01→17:20)
[2018-02-04] MEDS ORDERED: Potassium Phosphate IV* 10 MMOLE in NS 0.9% 250 ML* 250 ML IVPB ONE (18:00)
[2018-02-04] MEDS: Spironolactone TAB* 25 MG PO SCH (21:37)
[2018-02-04] MEDS: Potassium Chlor TAB* 20 MEQ TAB.ER PO SCH (21:38)
[2018-02-05 06:37] LABS: ABS Basophils 0.1 10^3/ul (0-0.2); ABS Eosinophils 0.1 10^3/ul (0-0.6); ABS Lymphocytes 0.6 10^3/ul (1.0-4.8); ABS Neutrophils 5.2 10^3/ul (1.5-7.7); ABS Nucleated RBC 0 10^3/ul; Eosinophil % 1.8 % (0-6); Hematocrit 31 % (42-52); Hemoglobin 10.6 g/dl (14.0-18.0); Lymphocyte % 8.6 % (25-47); Mean Corpuscular HGB Conc 35 g/dl (31-36); Mean Corpuscular Hemoglobin 35 pg (27-31); Mean Corpuscular Volume 101 fL (80-94); Mean Platelet Volume 8.2 fL (7.4-10.4); Nucleated Red Blood Cells % 0.1; Platelet Count 92 10^3/ul (150-450); Red Blood Count 3.06 10^6/ul (4.00-5.40); Red Cell Distribution Width 16 % (10.5-15); White Blood Count 6.9 10^3/ul (3.5-10.8)
[2018-02-05 06:53] LABS: EGFR Non-African American 79.5 (>60)
[2018-02-05] MEDS ORDERED: Potassium Phosphate IV* 15 MMOLE in NS 0.9% 250 ML* 250 ML IVPB ONE (07:00)
[2018-02-05] MEDS: Potassium Chlor TAB* 20 MEQ TAB.ER PO SCH ×2 (08:41→21:51)
[2018-02-05] MEDS: Furosemide TAB* 20 MG PO SCH (08:41)
[2018-02-05] MEDS: Folic Acid TAB* 1 MG PO SCH (08:42)
[2018-02-05] MEDS: Thiamine TAB* 100 MG TAB PO SCH (08:42)
[2018-02-05] MEDS: Multivitamins/Minerals TAB PO SCH (08:42)
[2018-02-05] MEDS: Omeprazole CAP* 20 MG PO SCH (08:42)
[2018-02-05] MEDS: Potassium & Sodium Phos 250MG* = 1 PACKET PO SCH ×3 (08:42→21:52)
[2018-02-05] MEDS: Heparin VIAL(*) 5000 UNITS/ML VIAL (FIVE THOUSAND) SUBCUT SCH ×2 (08:42→21:54)
--- NOTE | 2018-02-05 15:26 | PN ---
Subjective Date of Service: 02/05/18 Interval History: HOSPITALIST PROGRESS NOTE Patient seen and examined at bedside. Care reviewed and d/w Radha Perez RN. His only complaint today is his belly feels more distended and prior paracentesis site is leaking. Appetite is good, denies pain, N/V. Family History: Unchanged from Admission Social History: Unchanged from Admission Past Medical History: Unchanged from Admission Objective Active Medications: Al Hydrox/Mg Hydrox/Simethicone (Maalox Plus*) 30 ml PO Q6H PRN PRN Reason: INDIGESTION Last Admin: 02/03/18 21:26 Dose: 30 ml Albuterol (Ventolin 2.5 Mg/3 Ml Neb.Kiara*) 2.5 mg INH Q2H PRN PRN Reason: SOB/WHEEZING Folic Acid (Folvite Tab*) 1 mg PO DAILY [facility] Last Admin: 02/05/18 08:42 Dose: 1 mg Furosemide (Lasix Tab*) 20 mg PO DAILY [facility] Last Admin: 02/05/18 08:41 Dose: 20 mg Heparin Sodium (Porcine) (Heparin Vial(*)) 5,000 units SUBCUT Q12HR [facility] Last Admin: 02/05/18 08:42 Dose: 5,000 units Hydrocortisone (Hytone Cream 1%*) 1 applic TOPICAL TID PRN PRN Reason: ITCHING Last Admin: 02/04/18 09:47 Dose: 1 applic Multivitamins/Minerals (Theragran/Minerals Tab*) 1 tab PO DAILY [facility] Last Admin: 02/05/18 08:42 Dose: 1 tab Omeprazole (Prilosec Cap*) 20 mg PO DAILY [facility] Last Admin: 02/05/18 08:42 Dose: 20 mg Potassium Chloride (Klor Con Er Tab*) 40 meq PO BID [facility] Last Admin: 02/05/18 08:41 Dose: 40 meq Potassium Phos/Sodium Phos (Neutra Phos 250 Mg Mina*) 250 mg PO TID [facility] Last Admin: 02/05/18 13:22 Dose: 250 mg Spironolactone (Aldactone Tab*) 50 mg PO BEDTIME [facility] Last Admin: 02/04/18 21:37 Dose: 50 mg Thiamine HCl (Vitamin B-1 Tab*) 100 mg PO DAILY [facility] Last Admin: 02/05/18 08:42 Dose: 100 mg Vital Signs - 8 hr 02/05/18 02/05/18 08:00 11:42 Temperature 98.2 F Pulse Rate 94 Respiratory 20 18 Rate Blood Pressure 102/75 (mmHg) O2 Sat by Pulse 100 Oximetry Oxygen Devices in Use Now: None Appearance: Middle aged gentleman sitting up in bed in NAD. Eyes: - - + Jaundice Ears/Nose/Mouth/Throat: Mucous Membranes Moist Neck: Trachea Midline Respiratory: Symmetrical Chest Expansion and Respiratory Effort, Clear to Auscultation Cardiovascular: RRR - Normal S1 and S2 Abdominal: - - Distended, significant ascites, not tender, BS+ Extremities: - - Bilateral LE moderate pitting edema Neurological: Alert and Oriented x 3, NL Muscle Strength and Tone Result Diagrams: 02/05/18 06:18 02/05/18 06:18 Microbiology and Other Data: Microbiology 02/01/18 09:10 Aerobic Blood Culture - Preliminary Blood Venous No Growth Day 1 Anaerobic Blood Culture - Preliminary No Growth Day 1 02/01/18 09:22 Sterile Body Fluid Culture - Preliminary Paracentesis Fluid No Growth Day 1 Sterile Body Fluid Culture - Preliminary No Growth Day 1 Gram Stain - Final Body Fluid Culture - Final 02/01/18 08:59 Aerobic Blood Culture - Preliminary Blood Venous No Growth Day 1 Anaerobic Blood Culture - Preliminary No Growth Day 1 02/02/18 03:15 Gram Stain - Final Sputum 02/01/18 12:30 Legionella Urinary Antigen - Final Urine Negative Legionella Antigen Streptococcus pneumoniae Ag Screen - Final Negative S. pneumo Antigen 02/01/18 12:30 Influenza Types A,B Antigen - Final Nasal Specimen received for Influenza A/B Molecular testing Assess/Plan/Problems-Billing Assessment: Mr. Norris is a 57 y/o homeless M who presented to ED with c/o increased leg edema, increased abdominal girth with known history of chronic ETOH abuse admitted for decompensated liver cirrhosis with no prior active medical care. - Patient Problems (1) Ascites due to alcoholic cirrhosis Comment: - Secondary to alcoholic cirrhosis. - S/P paracentesis 02/01 (3 L); 02/02/18 (3.5 L). - Continue diuresis with Furosemide 20mg and Spironolactone 50mg. - Weight down to 173lbs today. - Will make arrangements for another paracentesis. Plan to give Albumin 50g after paracentesis. - Continue to monitor I/Os and daily weights. (2) Liver cirrhosis, alcoholic Comment: - Continue MVI/Thiamine/Folate. - Case was discussed with Dr Aleman from [facility] labor and delivery registered nurse by Dr Witt. He recommended to implement albumin infusion to help mobilize his ascites until albimin 3.5 or greater is achieved. - Patient needs better social support and abstinence from ETOH at least 6 months. - Will need close Hepatology follow up and referral to a transplant center in the future. (3) Homeless Comment: - shine worker involved - patient is pending insurance, housing and follow up plans. (4) Hypophosphatemia Comment: - Continue to replete. (5) DVT prophylaxis Comment: - SQ heparin. (6) Full code status Status and Disposition: Inpatient. Requires close inpatient monitoring during more aggressive diuresis. SW assisting with d/c plan.
[2018-02-05] MEDS ORDERED: Lidocaine 1% INJ* 10 MG/ML 30 ML SDV ONE (15:56)
[2018-02-05] MEDS: Albumin Human 25%* 25 GM/100 ML BTL IV SCH ×2 (17:22→23:51)
[2018-02-05] MEDS: Spironolactone TAB* 25 MG PO SCH (21:52)
[2018-02-06] MEDS ORDERED: oxyCODONE TAB* 5 MG TAB PO ONE (08:00)
[2018-02-06] MEDS: Folic Acid TAB* 1 MG PO SCH (08:38)
[2018-02-06] MEDS: Furosemide TAB* 20 MG PO SCH (08:38)
[2018-02-06] MEDS: Omeprazole CAP* 20 MG PO SCH (08:38)
[2018-02-06] MEDS: Multivitamins/Minerals TAB PO SCH (08:38)
[2018-02-06] MEDS: Thiamine TAB* 100 MG TAB PO SCH (08:38)
[2018-02-06] MEDS: Potassium Chlor TAB* 20 MEQ TAB.ER PO SCH ×2 (08:39→20:19)
[2018-02-06] MEDS: Potassium & Sodium Phos 250MG* = 1 PACKET PO SCH ×3 (08:39→20:19)
[2018-02-06] MEDS: Heparin VIAL(*) 5000 UNITS/ML VIAL (FIVE THOUSAND) SUBCUT SCH ×2 (08:42→20:19)
--- NOTE | 2018-02-06 11:02 | PRO ---
DATE OF PROCEDURE: 02/05/18 - ROOM #419 SURGEON: Jimenez Bueno MD. ANESTHESIA: 1% lidocaine plain used locally. PRE-OP DIAGNOSIS: Ascites. POST-OP DIAGNOSIS: Ascites. PROCEDURE PERFORMED: Paracentesis. SPECIMENS: None. DRAINS: None. COMPLICATIONS: None. DESCRIPTION OF PROCEDURE: The patient was placed on the stretcher in the procedure room supine. Preprocedural ultrasound was performed to locate a pocket of fluid, the largest of which was located in the left lower quadrant. The site was then marked. He was prepped, draped and time-out was performed. Local anesthetic was infiltrated into the abdominal wall at the proposed site. An 11-blade scalpel was used to carol[place] the skin, and then an 8-Faroese paracentesis catheter over the needle device was placed into the peritoneal cavity and clear, mild-tinged fluid was aspirated. In total 3050 mL fluid were returned. The catheter was removed. The patient tolerated the procedure well. Bandages were applied. He was returned to his room in stable condition. [id number]/[facility] #: [id number] [facility]
--- NOTE | 2018-02-06 16:57 | PN ---
Subjective Date of Service: 02/06/18 Interval History: Reports feeling better after paracentesis.Reports that he stopped drinking 1.5 months ago. Family History: Unchanged from Admission Social History: Unchanged from Admission Past Medical History: Unchanged from Admission Objective Active Medications: Al Hydrox/Mg Hydrox/Simethicone (Maalox Plus*) 30 ml PO Q6H PRN PRN Reason: INDIGESTION Last Admin: 02/03/18 21:26 Dose: 30 ml Albuterol (Ventolin 2.5 Mg/3 Ml Neb.Kiara*) 2.5 mg INH Q2H PRN PRN Reason: SOB/WHEEZING Folic Acid (Folvite Tab*) 1 mg PO DAILY [facility] Last Admin: 02/06/18 08:38 Dose: 1 mg Furosemide (Lasix Tab*) 20 mg PO DAILY [facility] Last Admin: 02/06/18 08:38 Dose: 20 mg Heparin Sodium (Porcine) (Heparin Vial(*)) 5,000 units SUBCUT Q12HR [facility] Last Admin: 02/06/18 08:42 Dose: 5,000 units Hydrocortisone (Hytone Cream 1%*) 1 applic TOPICAL TID PRN PRN Reason: ITCHING Last Admin: 02/04/18 09:47 Dose: 1 applic Multivitamins/Minerals (Theragran/Minerals Tab*) 1 tab PO DAILY [facility] Last Admin: 02/06/18 08:38 Dose: 1 tab Omeprazole (Prilosec Cap*) 20 mg PO DAILY [facility] Last Admin: 02/06/18 08:38 Dose: 20 mg Potassium Chloride (Klor Con Er Tab*) 40 meq PO BID [facility] Last Admin: 02/06/18 08:39 Dose: 40 meq Potassium Phos/Sodium Phos (Neutra Phos 250 Mg Mina*) 250 mg PO TID [facility] Last Admin: 02/06/18 13:21 Dose: 250 mg Spironolactone (Aldactone Tab*) 50 mg PO BEDTIME [facility] Last Admin: 02/05/18 21:52 Dose: 50 mg Thiamine HCl (Vitamin B-1 Tab*) 100 mg PO DAILY [facility] Last Admin: 02/06/18 08:38 Dose: 100 mg Vital Signs - 8 hr 02/06/18 02/06/18 02/06/18 10:40 11:21 15:23 Temperature 98.3 F 98.2 F Pulse Rate 98 102 Respiratory 16 16 18 Rate Blood Pressure 116/84 107/69 (mmHg) O2 Sat by Pulse 100 100 Oximetry Oxygen Devices in Use Now: None Eyes: - - some scleral icterus Neck: Trachea Midline Respiratory: Symmetrical Chest Expansion and Respiratory Effort Cardiovascular: NL Sounds; No Murmurs; No JVD, RRR Abdominal: - - Tense ascitis, non tender,no rebound no guarding Extremities: No Edema Skin: - - pruritis but no rash Neurological: Alert and Oriented x 3 Result Diagrams: 02/05/18 06:18 02/05/18 06:18 Microbiology and Other Data: Microbiology 02/01/18 09:10 Aerobic Blood Culture - Preliminary Blood Venous No Growth Day 1 Anaerobic Blood Culture - Preliminary No Growth Day 1 02/01/18 09:22 Sterile Body Fluid Culture - Preliminary Paracentesis Fluid No Growth Day 1 Sterile Body Fluid Culture - Preliminary No Growth Day 1 Gram Stain - Final Body Fluid Culture - Final 02/01/18 08:59 Aerobic Blood Culture - Preliminary Blood Venous No Growth Day 1 Anaerobic Blood Culture - Preliminary No Growth Day 1 02/02/18 03:15 Gram Stain - Final Sputum 02/01/18 12:30 Legionella Urinary Antigen - Final Urine Negative Legionella Antigen Streptococcus pneumoniae Ag Screen - Final Negative S. pneumo Antigen 02/01/18 12:30 Influenza Types A,B Antigen - Final Nasal Specimen received for Influenza A/B Molecular testing Assess/Plan/Problems-Billing Assessment: Mr. Norris is a 57 y/o homeless M who presented to ED with c/o increased leg edema, increased abdominal girth with known history of chronic ETOH abuse admitted for decompensated liver cirrhosis with no prior active medical care. - Patient Problems (1) Ascites due to alcoholic cirrhosis Current Visit: Yes Status: Acute Code(s): K70.31 - ALCOHOLIC CIRRHOSIS OF LIVER WITH ASCITES SNOMED Code(s): 7881665038919710 Comment: - Secondary to alcoholic cirrhosis. - S/P paracentesis 02/01 (3 L); 02/02/18 (3.5 L). - Continue diuresis with Furosemide 20mg and Spironolactone 50mg. -s/p paracentesis yesterday with albumin administration - Continue to monitor I/Os and daily weights. (2) DVT prophylaxis Current Visit: Yes Status: Acute Code(s): HVG0763 - SNOMED Code(s): 171701090 Comment: - SQ heparin. (3) Homeless Current Visit: Yes Status: Acute Code(s): Z59.0 - HOMELESSNESS SNOMED Code (s): 40427623 Comment: - child and family services worker involved - patient is pending insurance, housing and follow up plans. (4) Hypophosphatemia Current Visit: Yes Status: Acute Code(s): E83.39 - OTHER DISORDERS OF PHOSPHORUS METABOLISM SNOMED Code(s): 4176713 Comment: - Continue to replete. (5) Liver cirrhosis, alcoholic Current Visit: Yes Status: Acute Code(s): K70.30 - ALCOHOLIC CIRRHOSIS OF LIVER WITHOUT ASCITES SNOMED Code(s): 065471873 Comment: - Continue MVI/Thiamine/Folate. - Case was discussed with Dr Aleman from [facility] garbage truck dispatcher by Dr Witt. He recommended to implement albumin infusion to help mobilize his ascites until albimin 3.5 or greater is achieved. - Patient needs better social support and abstinence from ETOH at least 6 months. - Will need close Hepatology follow up and referral to a transplant center in the future. Status and Disposition: Inpatient. Requires close inpatient monitoring during more aggressive diuresis. SW assisting with d/c plan.
[2018-02-06] MEDS: Spironolactone TAB* 25 MG PO SCH (20:19)
[2018-02-07 05:46] LABS: ABS Basophils 0.1 10^3/ul (0-0.2); ABS Eosinophils 0.2 10^3/ul (0-0.6); ABS Lymphocytes 0.7 10^3/ul (1.0-4.8); ABS Monocytes 1.2 10^3/ul (0-0.8); ABS Neutrophils 6.6 10^3/ul (1.5-7.7); ABS Nucleated RBC 0 10^3/ul; Hematocrit 33 % (42-52); Hemoglobin 11.2 g/dl (14.0-18.0); Mean Corpuscular HGB Conc 34 g/dl (31-36); Mean Corpuscular Hemoglobin 35 pg (27-31); Mean Corpuscular Volume 101 fL (80-94); Mean Platelet Volume 8.5 fL (7.4-10.4); Nucleated Red Blood Cells % 0.1; Platelet Count 91 10^3/ul (150-450); Red Blood Count 3.23 10^6/ul (4.00-5.40); Red Cell Distribution Width 16 % (10.5-15); White Blood Count 8.7 10^3/ul (3.5-10.8)
[2018-02-07 05:50] LABS: INR 1.7 (0.77-1.02)
[2018-02-07 05:55] LABS: EGFR Non-African American 74.2 (>60)
[2018-02-07] MEDS: Potassium Chlor TAB* 20 MEQ TAB.ER PO SCH ×2 (09:34→20:21)
[2018-02-07] MEDS: Thiamine TAB* 100 MG TAB PO SCH (09:34)
[2018-02-07] MEDS: Furosemide TAB* 20 MG PO SCH (09:34)
[2018-02-07] MEDS: Omeprazole CAP* 20 MG PO SCH (09:34)
[2018-02-07] MEDS: Multivitamins/Minerals TAB PO SCH (09:34)
[2018-02-07] MEDS: Potassium & Sodium Phos 250MG* = 1 PACKET PO SCH ×3 (09:34→20:21)
[2018-02-07] MEDS: Folic Acid TAB* 1 MG PO SCH (09:34)
[2018-02-07] MEDS: Heparin VIAL(*) 5000 UNITS/ML VIAL (FIVE THOUSAND) SUBCUT SCH ×2 (09:35→20:21)
--- NOTE | 2018-02-07 14:50 | PN ---
Subjective Date of Service: 02/07/18 Interval History: Pt's ascites increasing.Denies any complaints. Family History: Unchanged from Admission Social History: Unchanged from Admission Past Medical History: Unchanged from Admission Objective Active Medications: Al Hydrox/Mg Hydrox/Simethicone (Maalox Plus*) 30 ml PO Q6H PRN PRN Reason: INDIGESTION Last Admin: 02/03/18 21:26 Dose: 30 ml Albuterol (Ventolin 2.5 Mg/3 Ml Neb.Kiara*) 2.5 mg INH Q2H PRN PRN Reason: SOB/WHEEZING Folic Acid (Folvite Tab*) 1 mg PO DAILY [facility] Last Admin: 02/07/18 09:34 Dose: 1 mg Furosemide (Lasix Tab*) 20 mg PO DAILY [facility] Last Admin: 02/07/18 09:34 Dose: 20 mg Heparin Sodium (Porcine) (Heparin Vial(*)) 5,000 units SUBCUT Q12HR [facility] Last Admin: 02/07/18 09:35 Dose: 5,000 units Hydrocortisone (Hytone Cream 1%*) 1 applic TOPICAL TID PRN PRN Reason: ITCHING Last Admin: 02/04/18 09:47 Dose: 1 applic Multivitamins/Minerals (Theragran/Minerals Tab*) 1 tab PO DAILY [facility] Last Admin: 02/07/18 09:34 Dose: 1 tab Omeprazole (Prilosec Cap*) 20 mg PO DAILY [facility] Last Admin: 02/07/18 09:34 Dose: 20 mg Potassium Chloride (Klor Con Er Tab*) 40 meq PO BID [facility] Last Admin: 02/07/18 09:34 Dose: 40 meq Potassium Phos/Sodium Phos (Neutra Phos 250 Mg Mina*) 250 mg PO TID [facility] Last Admin: 02/07/18 14:03 Dose: 250 mg Spironolactone (Aldactone Tab*) 50 mg PO BEDTIME [facility] Last Admin: 02/06/18 20:19 Dose: 50 mg Thiamine HCl (Vitamin B-1 Tab*) 100 mg PO DAILY [facility] Last Admin: 02/07/18 09:34 Dose: 100 mg Vital Signs - 8 hr 02/07/18 02/07/18 02/07/18 07:10 07:53 11:02 Temperature 98.5 F 99.0 F Pulse Rate 102 101 Respiratory 18 18 18 Rate Blood Pressure 115/69 122/75 (mmHg) O2 Sat by Pulse 99 100 Oximetry Oxygen Devices in Use Now: None Eyes: - - scleral icterus present Neck: NL Appearance and Movements; NL JVP, Trachea Midline Respiratory: Symmetrical Chest Expansion and Respiratory Effort, Clear to Auscultation Cardiovascular: NL Sounds; No Murmurs; No JVD, RRR Abdominal: - - non tender, tense ascites, no rebound no guarding Skin: - - pruritis present.no rash Neurological: Alert and Oriented x 3 Result Diagrams: 02/07/18 05:04 02/07/18 05:04 Microbiology and Other Data: Microbiology 02/01/18 09:10 Aerobic Blood Culture - Preliminary Blood Venous No Growth Day 1 Anaerobic Blood Culture - Preliminary No Growth Day 1 02/01/18 09:22 Sterile Body Fluid Culture - Preliminary Paracentesis Fluid No Growth Day 1 Sterile Body Fluid Culture - Preliminary No Growth Day 1 Gram Stain - Final Body Fluid Culture - Final 02/01/18 08:59 Aerobic Blood Culture - Preliminary Blood Venous No Growth Day 1 Anaerobic Blood Culture - Preliminary No Growth Day 1 02/02/18 03:15 Gram Stain - Final Sputum 02/01/18 12:30 Legionella Urinary Antigen - Final Urine Negative Legionella Antigen Streptococcus pneumoniae Ag Screen - Final Negative S. pneumo Antigen 02/01/18 12:30 Influenza Types A,B Antigen - Final Nasal Specimen received for Influenza A/B Molecular testing Assess/Plan/Problems-Billing Assessment: Mr. Norris is a 57 y/o homeless M who presented to ED with c/o increased leg edema, increased abdominal girth with known history of chronic ETOH abuse admitted for decompensated liver cirrhosis with no prior active medical care. - Patient Problems (1) Liver cirrhosis, alcoholic Current Visit: Yes Status: Acute Code(s): K70.30 - ALCOHOLIC CIRRHOSIS OF LIVER WITHOUT ASCITES SNOMED Code(s): 391234783 Comment: - Decompensated Alcoholic Cirrhosis -LFTs not sig elevated and pic more c/w decompensated cirrhosis. Viral hepatitis serology neg. High Discriminant factor 62 but more c/w decompensated cirrhosis and steroids not given initially -MELD calculated today ext high at 34 with 20% mortality risk in the next 3 months Continue MVI/Thiamine/Folate. - Case was discussed with Dr Aleman from [facility] track oiler by Dr Moussallem. He recommended to implement albumin infusion to help mobilize his ascites until albimin 3.5 or greater is achieved. - Patient needs better social support and abstinence from ETOH at least 6 months. - Will need close Hepatology follow up and referral to a transplant center . -Will need close GI evaluation and f/u -May not even make the 6 months with his decompensated liver cirrhosis to get a transplant and needs referal. Also to complicate further, pt has no insurance.And needs social work and case management involvement tomorrow to help with this (2) Ascites due to alcoholic cirrhosis Current Visit: Yes Status: Acute Code(s): K70.31 - ALCOHOLIC CIRRHOSIS OF LIVER WITH ASCITES SNOMED Code(s): 9542784988719917 Comment: - Secondary to alcoholic cirrhosis. - S/P paracentesis 02/01 (3 L); 02/02/18 (3.5 L) and paracentesis on 02/04/18 - Continue diuresis with Furosemide 20mg and Spironolactone 50mg. - Continue to monitor I/Os and daily weights. (3) Homeless Current Visit: Yes Status: Acute Code(s): Z59.0 - HOMELESSNESS SNOMED Code (s): 22600078 Comment: - instrument worker involved - patient is pending insurance, housing and follow up plans. (4) DVT prophylaxis Current Visit: Yes Status: Acute Code(s): NJQ6944 - SNOMED Code(s): 278264924 Comment: - SQ heparin. (5) Hypophosphatemia Current Visit: Yes Status: Acute Code(s): E83.39 - OTHER DISORDERS OF PHOSPHORUS METABOLISM SNOMED Code(s): 6997803 Comment: - Continue to replete. Status and Disposition: Inpatient. poor prognosis
[2018-02-07] MEDS: Spironolactone TAB* 25 MG PO SCH (20:20)
[2018-02-07] MEDS: Al Hydrox/Mg Hydrox/Simet LIQ* 30 ML UDC PO PRN (21:10)
[2018-02-08 06:47] LABS: ABS Basophils 0 10^3/ul (0-0.2); ABS Eosinophils 0.2 10^3/ul (0-0.6); ABS Lymphocytes 0.8 10^3/ul (1.0-4.8); ABS Monocytes 1.3 10^3/ul (0-0.8); ABS Nucleated RBC 0 10^3/ul; Eosinophil % 1.6 % (0-6); Hematocrit 32 % (42-52); Hemoglobin 11.1 g/dl (14.0-18.0); Lymphocyte % 8.3 % (25-47); Mean Corpuscular HGB Conc 34 g/dl (31-36); Mean Corpuscular Hemoglobin 35 pg (27-31); Mean Corpuscular Volume 101 fL (80-94); Mean Platelet Volume 8.4 fL (7.4-10.4); Nucleated Red Blood Cells % 0; Platelet Count 87 10^3/ul (150-450); Red Cell Distribution Width 16 % (10.5-15); White Blood Count 9.3 10^3/ul (3.5-10.8)
[2018-02-08 07:04] LABS: EGFR Non-African American 73.4 (>60)
[2018-02-08] MEDS: Omeprazole CAP* 20 MG PO SCH (09:07)
[2018-02-08] MEDS: Potassium & Sodium Phos 250MG* = 1 PACKET PO SCH ×3 (09:07→19:52)
[2018-02-08] MEDS: Folic Acid TAB* 1 MG PO SCH (09:07)
[2018-02-08] MEDS: Furosemide TAB* 20 MG PO SCH (09:07)
[2018-02-08] MEDS: Potassium Chlor TAB* 20 MEQ TAB.ER PO SCH ×2 (09:08→19:52)
[2018-02-08] MEDS: Heparin VIAL(*) 5000 UNITS/ML VIAL (FIVE THOUSAND) SUBCUT SCH ×2 (09:08→19:53)
[2018-02-08] MEDS: Multivitamins/Minerals TAB PO SCH (09:08)
[2018-02-08] MEDS: Thiamine TAB* 100 MG TAB PO SCH (09:09)
--- NOTE | 2018-02-08 17:20 | PN ---
Subjective Date of Service: 02/08/18 Interval History: [place] to the [facility] (the tentative dispo plan discussed during MDR) . States he expects to be at this hospital through [place]. attests we need to talke to Darlin Ferrera to get help setting up his housed. Wants to be set up with his former landlords ____ and Shasha Potts? ( [place] [facility]) He has continued leakage from 2 colostomy drainage bags at para sites left leg still swollen from baseline, right resolved swelling afebrile, NAEON, T bili increased to 19.1 from 15.3 Attests he has a sister, brother, sons, daughters and nephews that all live in the [facility]. He says they don't visit. Family History: Unchanged from Admission Social History: Unchanged from Admission Past Medical History: Unchanged from Admission Objective Active Medications: Al Hydrox/Mg Hydrox/Simethicone (Maalox Plus*) 30 ml PO Q6H PRN PRN Reason: INDIGESTION Last Admin: 02/07/18 21:10 Dose: 30 ml Albuterol (Ventolin 2.5 Mg/3 Ml Neb.Kiara*) 2.5 mg INH Q2H PRN PRN Reason: SOB/WHEEZING Folic Acid (Folvite Tab*) 1 mg PO DAILY [facility] Last Admin: 02/08/18 09:07 Dose: 1 mg Furosemide (Lasix Tab*) 20 mg PO DAILY [facility] Last Admin: 02/08/18 09:07 Dose: 20 mg Heparin Sodium (Porcine) (Heparin Vial(*)) 5,000 units SUBCUT Q12HR [facility] Last Admin: 02/08/18 09:08 Dose: 5,000 units Hydrocortisone (Hytone Cream 1%*) 1 applic TOPICAL TID PRN PRN Reason: ITCHING Last Admin: 02/04/18 09:47 Dose: 1 applic Multivitamins/Minerals (Theragran/Minerals Tab*) 1 tab PO DAILY [facility] Last Admin: 02/08/18 09:08 Dose: 1 tab Omeprazole (Prilosec Cap*) 20 mg PO DAILY [facility] Last Admin: 02/08/18 09:07 Dose: 20 mg Potassium Chloride (Klor Con Er Tab*) 40 meq PO BID [facility] Last Admin: 11/19/18 09:08 Dose: 40 meq Potassium Phos/Sodium Phos (Neutra Phos 250 Mg Mina*) 250 mg PO TID [facility] Last Admin: 02/08/18 14:00 Dose: 250 mg Spironolactone (Aldactone Tab*) 50 mg PO BEDTIME [facility] Last Admin: 02/07/18 20:20 Dose: 50 mg Thiamine HCl (Vitamin B-1 Tab*) 100 mg PO DAILY [facility] Last Admin: 02/08/18 09:09 Dose: 100 mg Oxygen Devices in Use Now: None Appearance: NAD Eyes: - - scleral icterus Ears/Nose/Mouth/Throat: Mucous Membranes Moist Neck: NL Appearance and Movements; NL JVP Respiratory: Symmetrical Chest Expansion and Respiratory Effort, Clear to Auscultation Cardiovascular: NL Sounds; No Murmurs; No JVD, RRR Abdominal: - - very distended, ascitic wave, leaking ascites through bilateral colostomy bags over para sites. nontender Extremities: - - left LE 3+ edema, right trace edema Skin: No Rash or Ulcers Neurological: Alert and Oriented x 3, NL Sensation, - - no asterixis Nutrition: Taking PO's Result Diagrams: 02/08/18 06:20 02/08/18 06:20 Additional Lab and Data: Laboratory Results - last 24 hr 02/08/18 02/08/18 06:20 06:20 WBC 9.3 RBC 3.20 L Hgb 11.1 L Hct 32 L MCV 101 H MCH 35 H MCHC 34 RDW 16 H Plt Count 87 L MPV 8.4 Neut % (Auto) 75.7 Lymph % (Auto) 8.3 L Maverick % (Auto) 13.9 H Eos % (Auto) 1.6 Baso % (Auto) 0.5 Absolute Neuts (auto) 7.0 Absolute Lymphs (auto) 0.8 L Absolute Monos (auto) 1.3 H Absolute Eos (auto) 0.2 Absolute Basos (auto) 0 Absolute Nucleated RBC 0 Nucleated RBC % 0 Sodium 133 L Potassium 4.6 Chloride 104 Carbon Dioxide 24 Anion Gap 5 BUN 9 Creatinine 1.04 Est GFR ( Amer) 88.8 Est GFR (Non-Af Amer) 73.4 BUN/Creatinine Ratio 8.7 Glucose 101 H Calcium 8.4 L Microbiology and Other Data: Microbiology 02/01/18 09:22 Paracentesis Fluid Sterile Body Fluid Culture - Final No Growth Day 5 02/01/18 09:22 Paracentesis Fluid Sterile Body Fluid Culture - Final No Growth Day 5 02/01/18 09:22 Paracentesis Fluid Gram Stain - Final 02/01/18 09:22 Paracentesis Fluid Body Fluid Culture - Final 02/01/18 09:10 Blood Venous Aerobic Blood Culture - Final No Growth Day 5 02/01/18 09:10 Blood Venous Anaerobic Blood Culture - Final No Growth Day 5 02/01/18 08:59 Blood Venous Aerobic Blood Culture - Final No Growth Day 5 02/01/18 08:59 Blood Venous Anaerobic Blood Culture - Final No Growth Day 5 02/02/18 03:15 Sputum Gram Stain - Final 02/02/18 03:15 Sputum Sputum Culture - Final YEAST Normal Violeta 02/01/18 12:30 Urine Legionella Urinary Antigen - Final Negative Legionella Antigen 02/01/18 12:30 Urine Streptococcus pneumoniae Ag Screen - Final Negative S. pneumo Antigen 02/01/18 12:30 Nasal Influenza Types A,B Antigen - Final Specimen received for Influenza A/B Molecular testing Assess/Plan/Problems-Billing Assessment: Mr. Norris is a 57 y/o homeless M who presented to ED with c/o increased leg edema, increased abdominal girth with known history of chronic ETOH abuse admitted for decompensated liver cirrhosis with no prior active medical care. s/ p 3 paracentesis. - Patient Problems (1) Ascites due to alcoholic cirrhosis Current Visit: Yes Status: Acute Code(s): K70.31 - ALCOHOLIC CIRRHOSIS OF LIVER WITH ASCITES SNOMED Code(s): 1861805360812287 Comment: - Secondary to alcoholic cirrhosis. - S/P paracentesis 02/01 (3 L); 02/02/18 (3.5 L) and paracentesis on 02/04/18 - Increase diuresis from Furosemide 20mg and Spironolactone 50mg to 40m and 100mg He is still quite distended and belly tense enougth that he is continously leaking from paracenteis sites. decreae Potasstium supplemenation to 40daily from 40 BID - Continue to monitor I/Os and daily weights. (2) Liver cirrhosis, alcoholic Current Visit: Yes Status: Acute Code(s): K70.30 - ALCOHOLIC CIRRHOSIS OF LIVER WITHOUT ASCITES SNOMED Code(s): 984989018 Comment: - Decompensated Alcoholic Cirrhosis -transaminases not significantly elevated and pic more c/w decompensated cirrhosis. Viral hepatitis serology neg. High Discriminant factor 62 but more c/ w decompensated cirrhosis and steroids not given initially -recent MELD calculated ext high at 34 with 20% mortality risk in the next 3 months Continue MVI/Thiamine/Folate. - Of note, early in admission the case was discussed with Dr Aleman from [facility] email producer by Dr Witt. He recommended to implement albumin infusion to help mobilize his ascites until albimin 3.5 or greater is achieved. - Patient needs better social support and abstinence from ETOH at least 6 months. - Will need close Hepatology follow up and referral to a transplant center . -Will need close GI evaluation and f/u -May not even make the 6 months with his decompensated liver cirrhosis to get a transplant and needs referal. social work and case management involvement appreciated. (3) DVT prophylaxis Current Visit: Yes Status: Acute Code(s): [id number] - SNOMED Code(s): 391954767 Comment: - SQ heparin. (4) Electrolyte abnormality Current Visit: Yes Status: Acute Code(s): E87.8 - OTH DISORDERS OF ELECTROLYTE AND FLUID BALANCE, NEC SNOMED Code(s): 373669927 Comment: - Continue to replete. (5) Full code status Current Visit: Yes Status: Acute Code(s): Z78.9 - OTHER SPECIFIED HEALTH STATUS SNOMED Code(s): 551469553 (6) Homeless Current Visit: Yes Status: Acute Code(s): Z59.0 - HOMELESSNESS SNOMED Code (s): 25565954 Comment: - renal social worker involved - patient states he would refuse discharge to [facility] which was the tentative d/c plan. Of note he does have many family members in the area. (7) Hypophosphatemia Current Visit: Yes Status: Acute Code(s): E83.39 - OTHER DISORDERS OF PHOSPHORUS METABOLISM SNOMED Code(s): 4462386 Comment: - recheck in AM, had been very low. Status and Disposition: Inpatient. poor prognosis
[2018-02-08] MEDS: Spironolactone TAB* 25 MG PO SCH (19:52)
[2018-02-08] MEDS: Hydrocortisone 1% CREAM* 30 GM TUBE TOPICAL PRN (20:08)
[2018-02-09] MEDS: Potassium Chlor TAB* 20 MEQ TAB.ER PO SCH (08:48)
[2018-02-09] MEDS: Omeprazole CAP* 20 MG PO SCH (08:49)
[2018-02-09] MEDS: Multivitamins/Minerals TAB PO SCH (08:49)
[2018-02-09] MEDS: Folic Acid TAB* 1 MG PO SCH (08:50)
[2018-02-09] MEDS: Thiamine TAB* 100 MG TAB PO SCH (08:50)
[2018-02-09] MEDS: Potassium & Sodium Phos 250MG* = 1 PACKET PO SCH ×3 (08:51→20:45)
[2018-02-09] MEDS: Heparin VIAL(*) 5000 UNITS/ML VIAL (FIVE THOUSAND) SUBCUT SCH ×2 (08:52→20:44)
[2018-02-09] MEDS ORDERED: Furosemide TAB* 20 MG PO SCH (09:00)
--- NOTE | 2018-02-09 12:13 | PN ---
Subjective Date of Service: 02/09/18 Interval History: Pt feels well. his legs are lass swollen. Paracentesis sites still draining fluid(approx 700 ml total /past 24H) Family History: Unchanged from Admission Social History: Unchanged from Admission Past Medical History: Unchanged from Admission Objective Active Medications: Al Hydrox/Mg Hydrox/Simethicone (Maalox Plus*) 30 ml PO Q6H PRN PRN Reason: INDIGESTION Last Admin: 02/07/18 21:10 Dose: 30 ml Albuterol (Ventolin 2.5 Mg/3 Ml Neb.Kiara*) 2.5 mg INH Q2H PRN PRN Reason: SOB/WHEEZING Folic Acid (Folvite Tab*) 1 mg PO DAILY [facility] Last Admin: 02/09/18 08:50 Dose: 1 mg Furosemide (Lasix Tab*) 40 mg PO 0800,1700 [facility] Heparin Sodium (Porcine) (Heparin Vial(*)) 5,000 units SUBCUT Q12HR [facility] Last Admin: 02/09/18 08:52 Dose: 5,000 units Hydrocortisone (Hytone Cream 1%*) 1 applic TOPICAL TID PRN PRN Reason: ITCHING Last Admin: 02/08/18 20:08 Dose: 1 applic Multivitamins/Minerals (Theragran/Minerals Tab*) 1 tab PO DAILY [facility] Last Admin: 02/09/18 08:49 Dose: 1 tab Omeprazole (Prilosec Cap*) 20 mg PO DAILY [facility] Last Admin: 02/09/18 08:49 Dose: 20 mg Potassium Chloride (Klor Con Er Tab*) 40 meq PO DAILY [facility] Last Admin: 02/09/18 08:48 Dose: 40 meq Potassium Phos/Sodium Phos (Neutra Phos 250 Mg Mina*) 250 mg PO TID [facility] Last Admin: 02/09/18 08:51 Dose: 250 mg Spironolactone (Aldactone Tab*) 100 mg PO BEDTIME [facility] Thiamine HCl (Vitamin B-1 Tab*) 100 mg PO DAILY [facility] Last Admin: 02/09/18 08:50 Dose: 100 mg Vital Signs - 8 hr 02/09/18 02/09/18 02/09/18 07:29 08:00 10:50 Temperature 98.8 F Pulse Rate 102 100 Respiratory 16 20 20 Rate Blood Pressure 110/67 (mmHg) O2 Sat by Pulse 100 100 Oximetry Oxygen Devices in Use Now: None Appearance: 57 yo M in nAD, aAOx3 Eyes: PERRLA Ears/Nose/Mouth/Throat: NL Teeth, Lips, Gums, Mucous Membranes Moist Neck: NL Appearance and Movements; NL JVP, Trachea Midline Respiratory: Symmetrical Chest Expansion and Respiratory Effort, - - scant b/l lower lobes wheezes Abdominal: - - soft ascites noted, 2 colostomy bags attached to either side of abdomen with straw coloured flluid. abd NT, BS+ Lymphatic: No Cervical Adenopathy Extremities: No Clubbing, Cyanosis, - - L leg edema >>R Skin: No Nodules or Sclerosis, - - jaundice noted Neurological: Alert and Oriented x 3, NL Muscle Strength and Tone Result Diagrams: 02/08/18 06:20 02/09/18 07:57 Additional Lab and Data: Laboratory Results - last 24 hr 02/08/18 02/08/18 06:20 06:20 WBC 9.3 RBC 3.20 L Hgb 11.1 L Hct 32 L MCV 101 H MCH 35 H MCHC 34 RDW 16 H Plt Count 87 L MPV 8.4 Neut % (Auto) 75.7 Lymph % (Auto) 8.3 L [place] % (Auto) 13.9 H Eos % (Auto) 1.6 Baso % (Auto) 0.5 Absolute Neuts (auto) 7.0 Absolute Lymphs (auto) 0.8 L Absolute Monos (auto) 1.3 H Absolute Eos (auto) 0.2 Absolute Basos (auto) 0 Absolute Nucleated RBC 0 Nucleated RBC % 0 Sodium 133 L Potassium 4.6 Chloride 104 Carbon Dioxide 24 Anion Gap 5 BUN 9 Creatinine 1.04 Est GFR ( Amer) 88.8 Est GFR (Non-Af Amer) 73.4 BUN/Creatinine Ratio 8.7 Glucose 101 H Calcium 8.4 L Microbiology and Other Data: Microbiology 02/01/18 09:22 Paracentesis Fluid Sterile Body Fluid Culture - Final No Growth Day 5 02/01/18 09:22 Paracentesis Fluid Sterile Body Fluid Culture - Final No Growth Day 5 02/01/18 09:22 Paracentesis Fluid Gram Stain - Final 02/01/18 09:22 Paracentesis Fluid Body Fluid Culture - Final 02/01/18 09:10 Blood Venous Aerobic Blood Culture - Final No Growth Day 5 02/01/18 09:10 Blood Venous Anaerobic Blood Culture - Final No Growth Day 5 02/01/18 08:59 Blood Venous Aerobic Blood Culture - Final No Growth Day 5 02/01/18 08:59 Blood Venous Anaerobic Blood Culture - Final No Growth Day 5 02/02/18 03:15 Sputum Gram Stain - Final 02/02/18 03:15 Sputum Sputum Culture - Final YEAST Normal Violeta 02/01/18 12:30 Urine Legionella Urinary Antigen - Final Negative Legionella Antigen 02/01/18 12:30 Urine Streptococcus pneumoniae Ag Screen - Final Negative S. pneumo Antigen 02/01/18 12:30 Nasal Influenza Types A,B Antigen - Final Specimen received for Influenza A/B Molecular testing Assess/Plan/Problems-Billing Assessment: Mr. Norris is a 57 y/o homeless M who presented to ED with c/o increased leg edema, increased abdominal girth with known history of chronic ETOH abuse admitted for decompensated liver cirrhosis with no prior active medical care. s/ p 3 paracentesis. - Patient Problems (1) Ascites due to alcoholic cirrhosis Comment: - Secondary to alcoholic cirrhosis. - S/P paracentesis 02/01 (3 L); 02/02/18 (3.5 L) and paracentesis on 02/04/18 - increase Furosemide 40mg to BID, cont and Spironolactone 100mg. He is still quite distended that he is continously leaking from paracentesis sites. asked GI to re-visit and advice - Continue to monitor I/Os and daily weights. (2) Homeless Comment: - kiln worker involved - patient states he would refuse discharge to [facility] which was the tentative d/c plan. Of note he does have many family members in the area. (3) Liver cirrhosis, alcoholic Comment: - Decompensated Alcoholic Cirrhosis -transaminases not significantly elevated and pic more c/w decompensated cirrhosis. Viral hepatitis serology neg. High Discriminant factor 62 but more c/ w decompensated cirrhosis and steroids not given initially -recent MELD calculated at 26 with 19.6% mortality risk in the next 3 months Continue MVI/Thiamine/Folate. - Of note, early in admission the case was discussed with Dr Aleman from [facility] [place] [facility] centrifugal operator by Dr Witt. He recommended to implement albumin infusion to help mobilize his ascites until albimin 3.5 or greater is achieved. - Patient needs better social support and abstinence from ETOH at least 6 months. - Will need close Hepatology follow up and referral to a transplant center . -Will need close GI evaluation and f/u -May not even make the 6 months with his decompensated liver cirrhosis to get a transplant and needs referal. (4) Hypophosphatemia Comment: - recheck in AM, had been very low. cont KPhos (5) DVT prophylaxis Comment: - SQ heparin. Status and Disposition: Inpatient. poor prognosis
[2018-02-09] MEDS: Furosemide TAB* 40 MG PO SCH (17:44)
[2018-02-09] MEDS: CMCS: Midodrine (NF) 5 MG TAB PO SCH (20:45)
[2018-02-09] MEDS: Spironolactone TAB* 25 MG PO SCH (20:45)
--- NOTE | 2018-02-09 22:17 | CONS ---
GASTROENTEROLOGY CONSULT FOLLOWUP: DATE: 02/09/18. CONSULTING PHYSICIAN: Berenice Pozo MD REASON FOR CONSULTATION: Persisting and refractory ascites. HOSPITAL COURSE: This 57-year-old alcoholic, currently homeless ([facility] [place] ") admitted 8 days ago was found to be affected by alcoholic hepatitis and had ascites. He has had 3 paracentesis, most recently on 02/05/18, by Dr. Bueno, 3 L. His LFTs have been transitioning with the platelets slightly diminishing towards 87, hemoglobin stable and currently 11.1 as of yesterday, bilirubin starting at 17.8 and now rising slightly today 19.5, ALT initially 51, diminishing slowly at 25; albumin 2.6 on admission, now 2.9, although he has received a few 25 g infusions. His alkaline phosphatase, which was 322 on admission, diminished to 143. CURRENT MEDICATIONS: 1. Furosemide 40 twice a day. 2. Spironolactone 100 h.s. 3. Potassium supplement. PHYSICAL EXAM: Today on exam, he is lying in bed comfortable, quite alert, conversant, and asking appropriate questions. He spontaneously commented that his chicken was coming too salty and that he did not want any salts. The abdomen is rounded firm with 2 ostomy bags on either side collecting a little bit of leaking fluid. ascitic He is nontender and no organs can be felt. IMPRESSION: To optimize his ascites control, he should be placed on a 2 g sodium diet and a modest fluid restriction of 1500 cc. His current diuretics can be continued. Low-dose midodrine can be given as his blood pressure has been adequate at 115/60 and pulse fine at 100. If in a week he does not start turning around significantly, conversation can take place regarding whether or not he would want to consider TIPS as currently he would not be a candidate for liver transplant and a regular schedule of outpatient paracentesis and albumin infusions is impractical in the homeless. With his ALT and alk phos diminishing, there is some chance that liver synthetic function will improve slightly. [id number]/[facility] #: [id number] [facility]
[2018-02-10] MEDS: Hydrocortisone 1% CREAM* 30 GM TUBE TOPICAL PRN ×2 (03:09→19:23)
[2018-02-10 06:04] LABS: INR 1.7 (0.77-1.02)
[2018-02-10 06:14] LABS: EGFR Non-African American 66.7 (>60)
[2018-02-10] MEDS: Furosemide TAB* 40 MG PO SCH ×2 (08:30→17:27)
[2018-02-10] MEDS: Potassium Chlor TAB* 20 MEQ TAB.ER PO SCH (08:30)
[2018-02-10] MEDS: Potassium & Sodium Phos 250MG* = 1 PACKET PO SCH (08:30)
[2018-02-10] MEDS: Omeprazole CAP* 20 MG PO SCH (08:31)
[2018-02-10] MEDS: CMCS: Midodrine (NF) 5 MG TAB PO SCH ×2 (08:31→20:04)
[2018-02-10] MEDS: Folic Acid TAB* 1 MG PO SCH (08:31)
[2018-02-10] MEDS: Multivitamins/Minerals TAB PO SCH (08:31)
[2018-02-10] MEDS: Thiamine TAB* 100 MG TAB PO SCH (08:33)
[2018-02-10] MEDS: Heparin VIAL(*) 5000 UNITS/ML VIAL (FIVE THOUSAND) SUBCUT SCH ×2 (08:33→20:05)
--- NOTE | 2018-02-10 12:14 | PN ---
Subjective Date of Service: 02/10/18 Interval History: Pt c/o inability to urinate. Colostomy bags attached to leaking post paracentesis sites yielded 500 ml /24H Family History: Unchanged from Admission Social History: Unchanged from Admission Past Medical History: Unchanged from Admission Objective Active Medications: Al Hydrox/Mg Hydrox/Simethicone (Maalox Plus*) 30 ml PO Q6H PRN PRN Reason: INDIGESTION Last Admin: 02/07/18 21:10 Dose: 30 ml Albuterol (Ventolin 2.5 Mg/3 Ml Neb.Kiara*) 2.5 mg INH Q2H PRN PRN Reason: SOB/WHEEZING Folic Acid (Folvite Tab*) 1 mg PO DAILY [facility] Last Admin: 02/10/18 08:31 Dose: 1 mg Furosemide (Lasix Tab*) 40 mg PO 0800,1700 [facility] Last Admin: 02/10/18 08:30 Dose: 40 mg Heparin Sodium (Porcine) (Heparin Vial(*)) 5,000 units SUBCUT Q12HR [facility] Last Admin: 02/10/18 08:33 Dose: 5,000 units Hydrocortisone (Hytone Cream 1%*) 1 applic TOPICAL TID PRN PRN Reason: ITCHING Last Admin: 02/10/18 03:09 Dose: 1 applic Midodrine (Midodrine (Nf)) 5 mg PO BID [facility]; Protocol Last Admin: 02/10/18 08:31 Dose: 5 mg Multivitamins/Minerals (Theragran/Minerals Tab*) 1 tab PO DAILY [facility] Last Admin: 02/10/18 08:31 Dose: 1 tab Omeprazole (Prilosec Cap*) 20 mg PO DAILY [facility] Last Admin: 02/10/18 08:31 Dose: 20 mg Potassium Chloride (Klor Con Er Tab*) 40 meq PO DAILY [facility] Last Admin: 02/10/18 08:30 Dose: 40 meq Potassium Phos/Sodium Phos (Neutra Phos 250 Mg Mina*) 250 mg PO TID [facility] Last Admin: 02/10/18 08:30 Dose: 250 mg Spironolactone (Aldactone Tab*) 100 mg PO BEDTIME [facility] Last Admin: 02/09/18 20:45 Dose: 100 mg Thiamine HCl (Vitamin B-1 Tab*) 100 mg PO DAILY [facility] Last Admin: 02/10/18 08:33 Dose: 100 mg Vital Signs - 8 hr 02/10/18 02/10/18 02/10/18 08:00 08:25 11:24 Temperature 99.3 F 98.5 F Pulse Rate 109 107 Respiratory 17 18 18 Rate Blood Pressure 111/68 97/64 (mmHg) O2 Sat by Pulse 100 100 Oximetry Oxygen Devices in Use Now: None Appearance: 57 yo M in nAD, AAOx3 Eyes: PERRLA, - - sclera icteric Ears/Nose/Mouth/Throat: NL Teeth, Lips, Gums, Mucous Membranes Moist Neck: NL Appearance and Movements; NL JVP, Trachea Midline Respiratory: Symmetrical Chest Expansion and Respiratory Effort, Clear to Auscultation Cardiovascular: NL Sounds; No Murmurs; No JVD, RRR Abdominal: - - large ascites, soft, NT, colostomy bags attached to leaking areas post paracentesis Lymphatic: No Cervical Adenopathy Extremities: No Edema, No Clubbing, Cyanosis Skin: No Rash or Ulcers, No Nodules or Sclerosis, - - jaundice Neurological: Alert and Oriented x 3, NL Muscle Strength and Tone Result Diagrams: 02/08/18 06:20 02/10/18 05:48 Additional Lab and Data: Laboratory Results - last 24 hr 02/08/18 02/08/18 06:20 06:20 WBC 9.3 RBC 3.20 L Hgb 11.1 L Hct 32 L MCV 101 H MCH 35 H MCHC 34 RDW 16 H Plt Count 87 L MPV 8.4 Neut % (Auto) 75.7 Lymph % (Auto) 8.3 L [place] % (Auto) 13.9 H Eos % (Auto) 1.6 Baso % (Auto) 0.5 Absolute Neuts (auto) 7.0 Absolute Lymphs (auto) 0.8 L Absolute Monos (auto) 1.3 H Absolute Eos (auto) 0.2 Absolute Basos (auto) 0 Absolute Nucleated RBC 0 Nucleated RBC % 0 Sodium 133 L Potassium 4.6 Chloride 104 Carbon Dioxide 24 Anion Gap 5 BUN 9 Creatinine 1.04 Est GFR ( Amer) 88.8 Est GFR (Non-Af Amer) 73.4 BUN/Creatinine Ratio 8.7 Glucose 101 H Calcium 8.4 L Microbiology and Other Data: Microbiology 02/01/18 09:22 Paracentesis Fluid Sterile Body Fluid Culture - Final No Growth Day 5 02/01/18 09:22 Paracentesis Fluid Sterile Body Fluid Culture - Final No Growth Day 5 02/01/18 09:22 Paracentesis Fluid Gram Stain - Final 02/01/18 09:22 Paracentesis Fluid Body Fluid Culture - Final 02/01/18 09:10 Blood Venous Aerobic Blood Culture - Final No Growth Day 5 02/01/18 09:10 Blood Venous Anaerobic Blood Culture - Final No Growth Day 5 02/01/18 08:59 Blood Venous Aerobic Blood Culture - Final No Growth Day 5 02/01/18 08:59 Blood Venous Anaerobic Blood Culture - Final No Growth Day 5 02/02/18 03:15 Sputum Gram Stain - Final 02/02/18 03:15 Sputum Sputum Culture - Final YEAST Normal Violeta 02/01/18 12:30 Urine Legionella Urinary Antigen - Final Negative Legionella Antigen 02/01/18 12:30 Urine Streptococcus pneumoniae Ag Screen - Final Negative S. pneumo Antigen 02/01/18 12:30 Nasal Influenza Types A,B Antigen - Final Specimen received for Influenza A/B Molecular testing Assess/Plan/Problems-Billing Assessment: Mr. Norris is a 57 y/o homeless M who presented to ED with c/o increased leg edema, increased abdominal girth with known history of chronic ETOH abuse admitted for decompensated liver cirrhosis with no prior active medical care. s/ p 3 paracentesis. - Patient Problems (1) Ascites due to alcoholic cirrhosis Comment: - Secondary to alcoholic cirrhosis. - S/P paracentesis 02/01 (3 L); 02/02/18 (3.5 L) and paracentesis on 02/04/18 - increased Furosemide 40mg to BID, cont and Spironolactone 100mg. He is still quite distended that he is continously leaking from paracentesis sites. On midodrine after Dr. Wooten's recommendation - Continue to monitor I/Os and daily weights. 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 Of note he does have many family members in the area. (3) Liver cirrhosis, alcoholic Comment: - Decompensated Alcoholic Cirrhosis -transaminases not significantly elevated and pic more c/w decompensated cirrhosis. Viral hepatitis serology neg. High Discriminant factor 62 but more c/ w decompensated cirrhosis and steroids not given initially -recent MELD calculated at 26 with 19.6% mortality risk in the next 3 months Continue MVI/Thiamine/Folate.. - Patient needs better social support and abstinence from ETOH at least 6 months. - Will need close Hepatology follow up and referral to a transplant center . -Will need close GI evaluation and f/u -May not even make the 6 months with his decompensated liver cirrhosis to get a transplant and needs referal. (4) Hypophosphatemia Comment: replaced (5) DVT prophylaxis Comment: - SQ heparin. (6) Hypoalbuminemia Comment: due to liver failure. S/p albumin infusions in the past. cont to monitor (7) Urinary retention Comment: started flomax. will do straight cath, refuses Strong for now Status and Disposition: Inpatient. poor prognosis
[2018-02-10] MEDS: Tamsulosin CAP* 0.4 MG PO SCH (13:56)
[2018-02-10] MEDS: Spironolactone TAB* 25 MG PO SCH (20:04)
[2018-02-11 03:52] LABS: Hematocrit 32 % (42-52); Hemoglobin 11.1 g/dl (14.0-18.0); Mean Corpuscular HGB Conc 35 g/dl (31-36); Mean Corpuscular Hemoglobin 35 pg (27-31); Mean Corpuscular Volume 99 fL (80-94); Red Blood Count 3.21 10^6/ul (4.00-5.40); Red Cell Distribution Width 16 % (10.5-15); White Blood Count 11.5 10^3/ul (3.5-10.8)
[2018-02-11 04:26] LABS: ABS Basophils 0.2 10^3/ul (0-0.2); ABS Eosinophils 0.2 10^3/ul (0-0.6); ABS Monocytes 1.3 10^3/ul (0-0.8); ABS Neutrophils 8.8 10^3/ul (1.5-7.7); ABS Nucleated RBC 0 10^3/ul; Eosinophil % 1.6 % (0-6); Lymphocyte % 8.6 % (25-47); Mean Platelet Volume 8.7 fL (7.4-10.4); Nucleated Red Blood Cells % 0.1; Platelet Count 128 10^3/ul (150-450)
[2018-02-11] MEDS: Heparin VIAL(*) 5000 UNITS/ML VIAL (FIVE THOUSAND) SUBCUT SCH ×2 (08:16→20:42)
[2018-02-11] MEDS: Furosemide TAB* 40 MG PO SCH (08:23)
[2018-02-11] MEDS: Folic Acid TAB* 1 MG PO SCH (08:23)
[2018-02-11] MEDS: Tamsulosin CAP* 0.4 MG PO SCH (08:23)
[2018-02-11] MEDS: Multivitamins/Minerals TAB PO SCH (08:23)
[2018-02-11] MEDS: CMCS: Midodrine (NF) 5 MG TAB PO SCH ×2 (08:23→20:40)
[2018-02-11] MEDS: Omeprazole CAP* 20 MG PO SCH (08:23)
[2018-02-11] MEDS: Potassium Chlor TAB* 20 MEQ TAB.ER PO SCH (08:24)
[2018-02-11] MEDS: Thiamine TAB* 100 MG TAB PO SCH (08:26)
--- NOTE | 2018-02-11 14:09 | PN ---
Subjective Date of Service: 02/11/18 Interval History: Pt's friend was unable to provide an apartment for pt. Pt refuses to go home with family. Paracentesis sites draining minimally. Pt stated that he urinates "a lot". denies pain Family History: Unchanged from Admission Social History: Unchanged from Admission Past Medical History: Unchanged from Admission Objective Active Medications: Al Hydrox/Mg Hydrox/Simethicone (Maalox Plus*) 30 ml PO Q6H PRN PRN Reason: INDIGESTION Last Admin: 02/07/18 21:10 Dose: 30 ml Albuterol (Ventolin 2.5 Mg/3 Ml Neb.Kiara*) 2.5 mg INH Q2H PRN PRN Reason: SOB/WHEEZING Folic Acid (Folvite Tab*) 1 mg PO DAILY [facility] Last Admin: 02/11/18 08:23 Dose: 1 mg Furosemide (Lasix Tab*) 40 mg PO 0800,1700 [facility] Last Admin: 02/11/18 08:23 Dose: 40 mg Heparin Sodium (Porcine) (Heparin Vial(*)) 5,000 units SUBCUT Q12HR [facility] Last Admin: 02/11/18 08:16 Dose: 5,000 units Hydrocortisone (Hytone Cream 1%*) 1 applic TOPICAL TID PRN PRN Reason: ITCHING Last Admin: 02/10/18 19:23 Dose: 1 applic Midodrine (Midodrine (Nf)) 5 mg PO BID [facility]; Protocol Last Admin: 02/11/18 08:23 Dose: 5 mg Multivitamins/Minerals (Theragran/Minerals Tab*) 1 tab PO DAILY [facility] Last Admin: 02/11/18 08:23 Dose: 1 tab Omeprazole (Prilosec Cap*) 20 mg PO DAILY [facility] Last Admin: 02/11/18 08:23 Dose: 20 mg Potassium Chloride (Klor Con Er Tab*) 40 meq PO DAILY [facility] Last Admin: 02/11/18 08:24 Dose: 40 meq Spironolactone (Aldactone Tab*) 100 mg PO BEDTIME [facility] Last Admin: 02/10/18 20:04 Dose: 100 mg Tamsulosin HCl (Flomax Cap*) 0.4 mg PO DAILY [facility] Last Admin: 02/11/18 08:23 Dose: 0.4 mg Thiamine HCl (Vitamin B-1 Tab*) 100 mg PO DAILY [facility] Last Admin: 02/11/18 08:26 Dose: 100 mg Vital Signs - 8 hr 02/11/18 02/11/18 08:00 12:11 Temperature 98.4 F Pulse Rate 122 Respiratory 20 18 Rate Blood Pressure 113/57 (mmHg) O2 Sat by Pulse 100 Oximetry Oxygen Devices in Use Now: None Appearance: 57 yo M in nAD, aAOx3 Eyes: PERRLA, - - sclera icteric Ears/Nose/Mouth/Throat: NL Teeth, Lips, Gums, Mucous Membranes Moist Neck: NL Appearance and Movements; NL JVP, Trachea Midline Respiratory: Symmetrical Chest Expansion and Respiratory Effort, Clear to Auscultation Cardiovascular: NL Sounds; No Murmurs; No JVD, RRR Abdominal: - - large abdomen with ascites,dense NT, BS+, colostomy bags attached to both sides of abd where paracentesis punctures were with scant straw coloured liquid draining Lymphatic: No Cervical Adenopathy Extremities: No Clubbing, Cyanosis, - - jaundice Skin: No Nodules or Sclerosis Neurological: Alert and Oriented x 3, NL Muscle Strength and Tone Result Diagrams: 02/11/18 03:21 02/11/18 03:23 Additional Lab and Data: Laboratory Results - last 24 hr 02/08/18 02/08/18 06:20 06:20 WBC 9.3 RBC 3.20 L Hgb 11.1 L Hct 32 L MCV 101 H MCH 35 H MCHC 34 RDW 16 H Plt Count 87 L MPV 8.4 Neut % (Auto) 75.7 Lymph % (Auto) 8.3 L [place] % (Auto) 13.9 H Eos % (Auto) 1.6 Baso % (Auto) 0.5 Absolute Neuts (auto) 7.0 Absolute Lymphs (auto) 0.8 L Absolute Monos (auto) 1.3 H Absolute Eos (auto) 0.2 Absolute Basos (auto) 0 Absolute Nucleated RBC 0 Nucleated RBC % 0 Sodium 133 L Potassium 4.6 Chloride 104 Carbon Dioxide 24 Anion Gap 5 BUN 9 Creatinine 1.04 Est GFR ( Amer) 88.8 Est GFR (Non-Af Amer) 73.4 BUN/Creatinine Ratio 8.7 Glucose 101 H Calcium 8.4 L Microbiology and Other Data: Microbiology 02/01/18 09:22 Paracentesis Fluid Sterile Body Fluid Culture - Final No Growth Day 5 02/01/18 09:22 Paracentesis Fluid Sterile Body Fluid Culture - Final No Growth Day 5 02/01/18 09:22 Paracentesis Fluid Gram Stain - Final 02/01/18 09:22 Paracentesis Fluid Body Fluid Culture - Final 02/01/18 09:10 Blood Venous Aerobic Blood Culture - Final No Growth Day 5 02/01/18 09:10 Blood Venous Anaerobic Blood Culture - Final No Growth Day 5 02/01/18 08:59 Blood Venous Aerobic Blood Culture - Final No Growth Day 5 02/01/18 08:59 Blood Venous Anaerobic Blood Culture - Final No Growth Day 5 02/02/18 03:15 Sputum Gram Stain - Final 02/02/18 03:15 Sputum Sputum Culture - Final YEAST Normal Violeta 02/01/18 12:30 Urine Legionella Urinary Antigen - Final Negative Legionella Antigen 02/01/18 12:30 Urine Streptococcus pneumoniae Ag Screen - Final Negative S. pneumo Antigen 02/01/18 12:30 Nasal Influenza Types A,B Antigen - Final Specimen received for Influenza A/B Molecular testing Assess/Plan/Problems-Billing Assessment: Mr. Norris is a 57 y/o homeless M who presented to ED with c/o increased leg edema, increased abdominal girth with known history of chronic ETOH abuse admitted for decompensated liver cirrhosis with no prior active medical care. s/ p 3 paracentesis. - Patient Problems (1) Ascites due to alcoholic cirrhosis Comment: - Secondary to alcoholic cirrhosis. - S/P paracentesis 02/01 (3 L); 02/02/18 (3.5 L) and paracentesis on 02/04/18 - increased Furosemide 40mg to BID, but today creat up to 1.2 and will decrease Lasix to 40 in AM and 20 mg in PM, cont and Spironolactone 100mg. He is still quite distended that he is leaking from paracentesis sites. On midodrine after Dr. Wooten's recommendation - Continue to monitor I/Os and daily weights. (2) Homeless Comment: - sample worker involved - patient states he would refuse discharge to [facility] which was the tentative d/c plan. Of note he does have many family members in the area. (3) Liver cirrhosis, alcoholic Comment: - Decompensated Alcoholic Cirrhosis -transaminases not significantly elevated and pic more c/w decompensated cirrhosis. Viral hepatitis serology neg. High Discriminant factor 62 but more c/ w decompensated cirrhosis and steroids not given initially -recent MELD calculated at 26 with 19.6% mortality risk in the next 3 months Continue MVI/Thiamine/Folate.. - Patient needs better social support and abstinence from ETOH at least 6 months. - Will need close Hepatology follow up and referral to a transplant center . -Will need close GI evaluation and f/u -May not even make the 6 months with his decompensated liver cirrhosis to get a transplant and needs referal. (4) Hypophosphatemia Comment: replaced (5) DVT prophylaxis Comment: - SQ heparin. (6) Hypoalbuminemia Comment: due to liver failure. S/p albumin infusions in the past. cont to monitor (7) Urinary retention Comment: started flomax. improved. refused Strong and straight cath on 02/10/18 Status and Disposition: Inpatient. poor prognosis
[2018-02-11] MEDS: Furosemide TAB* 20 MG PO SCH (17:36)
[2018-02-11] MEDS: Spironolactone TAB* 25 MG PO SCH (20:41)
[2018-02-12] MEDS: Heparin VIAL(*) 5000 UNITS/ML VIAL (FIVE THOUSAND) SUBCUT SCH (07:24)
[2018-02-12] MEDS: Folic Acid TAB* 1 MG PO SCH (07:26)
[2018-02-12] MEDS: Tamsulosin CAP* 0.4 MG PO SCH (07:26)
[2018-02-12] MEDS: Potassium Chlor TAB* 20 MEQ TAB.ER PO SCH (07:26)
[2018-02-12] MEDS: Thiamine TAB* 100 MG TAB PO SCH (07:26)
[2018-02-12] MEDS: CMCS: Midodrine (NF) 5 MG TAB PO SCH ×2 (07:26→21:15)
[2018-02-12] MEDS: Omeprazole CAP* 20 MG PO SCH (07:26)
[2018-02-12] MEDS: Multivitamins/Minerals TAB PO SCH (07:27)
[2018-02-12] MEDS: Furosemide TAB* 40 MG PO SCH (07:27)
[2018-02-12 09:01] LABS: ABS Basophils 0.1 10^3/ul (0-0.2); ABS Eosinophils 0.2 10^3/ul (0-0.6); ABS Lymphocytes 0.8 10^3/ul (1.0-4.8); ABS Monocytes 1.4 10^3/ul (0-0.8); ABS Neutrophils 8.3 10^3/ul (1.5-7.7); ABS Nucleated RBC 0 10^3/ul; Eosinophil % 1.6 % (0-6); Hematocrit 30 % (42-52); Hemoglobin 10.3 g/dl (14.0-18.0); Lymphocyte % 7.7 % (25-47); Mean Corpuscular HGB Conc 34 g/dl (31-36); Mean Corpuscular Hemoglobin 34 pg (27-31); Mean Corpuscular Volume 101 fL (80-94); Mean Platelet Volume 8.6 fL (7.4-10.4); Nucleated Red Blood Cells % 0.1; Platelet Count 115 10^3/ul (150-450); Red Blood Count 2.99 10^6/ul (4.00-5.40); Red Cell Distribution Width 16 % (10.5-15); White Blood Count 10.8 10^3/ul (3.5-10.8)
[2018-02-12 09:16] LABS: EGFR Non-African American 54.8 (>60)
--- NOTE | 2018-02-12 15:23 | PN ---
Subjective Date of Service: 02/12/18 Interval History: Patient seen and examined. States he wants to leave. After getting discharge ready and sending prescriptions, CM informed me that patient lost his opportunity for a hotel stay again today, as the patient became agitated with the Advocate that was trying to help coordinate a safe discharge plan. Please see MONAE and CM notes for details. Family History: Unchanged from Admission Social History: Unchanged from Admission Past Medical History: Unchanged from Admission Objective Active Medications: Al Hydrox/Mg Hydrox/Simethicone (Maalox Plus*) 30 ml PO Q6H PRN PRN Reason: INDIGESTION Last Admin: 02/07/18 21:10 Dose: 30 ml Albuterol (Ventolin 2.5 Mg/3 Ml Neb.Kiara*) 2.5 mg INH Q2H PRN PRN Reason: SOB/WHEEZING Folic Acid (Folvite Tab*) 1 mg PO DAILY [facility] Last Admin: 02/12/18 07:26 Dose: 1 mg Furosemide (Lasix Tab*) 40 mg PO DAILY [facility] Last Admin: 02/12/18 07:27 Dose: 40 mg Furosemide (Lasix Tab*) 20 mg PO 1700 [facility]REE Last Admin: 02/11/18 17:36 Dose: 20 mg Heparin Sodium (Porcine) (Heparin Vial(*)) 5,000 units SUBCUT Q12HR [facility] Last Admin: 02/12/18 07:24 Dose: 5,000 units Hydrocortisone (Hytone Cream 1%*) 1 applic TOPICAL TID PRN PRN Reason: ITCHING Last Admin: 02/10/18 19:23 Dose: 1 applic Melatonin (Melatonin) 3 mg PO BEDTIME PRN; Protocol PRN Reason: SLEEP Midodrine (Midodrine (Nf)) 5 mg PO BID [facility]; Protocol Last Admin: 02/12/18 07:26 Dose: 5 mg Multivitamins/Minerals (Theragran/Minerals Tab*) 1 tab PO DAILY [facility] Last Admin: 02/12/18 07:27 Dose: 1 tab Omeprazole (Prilosec Cap*) 20 mg PO DAILY [facility] Last Admin: 02/12/18 07:26 Dose: 20 mg Potassium Chloride (Klor Con Er Tab*) 40 meq PO DAILY [facility] Last Admin: 02/12/18 07:26 Dose: 40 meq Spironolactone (Aldactone Tab*) 100 mg PO BEDTIME [facility] Last Admin: 02/11/18 20:41 Dose: 100 mg Tamsulosin HCl (Flomax Cap*) 0.4 mg PO DAILY [facility] Last Admin: 02/12/18 07:26 Dose: 0.4 mg Thiamine HCl (Vitamin B-1 Tab*) 100 mg PO DAILY [facility] Last Admin: 02/12/18 07:26 Dose: 100 mg Vital Signs - 8 hr 02/12/18 02/12/18 02/12/18 07:20 07:30 08:48 Temperature 97.8 F Pulse Rate 102 106 Respiratory 18 16 16 Rate Blood Pressure 116/74 110/74 (mmHg) O2 Sat by Pulse 99 Oximetry 02/12/18 02/12/18 12:28 12:40 Temperature 98.1 F Pulse Rate 118 98 Respiratory 18 Rate Blood Pressure 111/57 (mmHg) O2 Sat by Pulse 100 Oximetry Oxygen Devices in Use Now: None Appearance: alert, anxious Eyes: No Scleral Icterus, PERRLA Ears/Nose/Mouth/Throat: Clear Oropharnyx, Mucous Membranes Moist Neck: NL Appearance and Movements; NL JVP, Trachea Midline Respiratory: Symmetrical Chest Expansion and Respiratory Effort, Clear to Auscultation, - - diminished bases Cardiovascular: NL Sounds; No Murmurs; No JVD Abdominal: - - large, distended, ostomy bags over tap sites Extremities: No Clubbing, Cyanosis Skin: No Rash or Ulcers Neurological: Alert and Oriented x 3, NL Gait Nutrition: Taking PO's Result Diagrams: 02/12/18 08:37 02/12/18 08:37 Additional Lab and Data: Laboratory Results - last 24 hr 02/08/18 02/08/18 06:20 06:20 WBC 9.3 RBC 3.20 L Hgb 11.1 L Hct 32 L MCV 101 H MCH 35 H MCHC 34 RDW 16 H Plt Count 87 L MPV 8.4 Neut % (Auto) 75.7 Lymph % (Auto) 8.3 L Morris % (Auto) 13.9 H Eos % (Auto) 1.6 Baso % (Auto) 0.5 Absolute Neuts (auto) 7.0 Absolute Lymphs (auto) 0.8 L Absolute Monos (auto) 1.3 H Absolute Eos (auto) 0.2 Absolute Basos (auto) 0 Absolute Nucleated RBC 0 Nucleated RBC % 0 Sodium 133 L Potassium 4.6 Chloride 104 Carbon Dioxide 24 Anion Gap 5 BUN 9 Creatinine 1.04 Est GFR ( Amer) 88.8 Est GFR (Non-Af Amer) 73.4 BUN/Creatinine Ratio 8.7 Glucose 101 H Calcium 8.4 L Microbiology and Other Data: Microbiology 02/01/18 09:22 Paracentesis Fluid Sterile Body Fluid Culture - Final No Growth Day 5 02/01/18 09:22 Paracentesis Fluid Sterile Body Fluid Culture - Final No Growth Day 5 02/01/18 09:22 Paracentesis Fluid Gram Stain - Final 02/01/18 09:22 Paracentesis Fluid Body Fluid Culture - Final 02/01/18 09:10 Blood Venous Aerobic Blood Culture - Final No Growth Day 5 02/01/18 09:10 Blood Venous Anaerobic Blood Culture - Final No Growth Day 5 02/01/18 08:59 Blood Venous Aerobic Blood Culture - Final No Growth Day 5 02/01/18 08:59 Blood Venous Anaerobic Blood Culture - Final No Growth Day 5 02/02/18 03:15 Sputum Gram Stain - Final 02/02/18 03:15 Sputum Sputum Culture - Final YEAST Normal Violeta 02/01/18 12:30 Urine Legionella Urinary Antigen - Final Negative Legionella Antigen 02/01/18 12:30 Urine Streptococcus pneumoniae Ag Screen - Final Negative S. pneumo Antigen 02/01/18 12:30 Nasal Influenza Types A,B Antigen - Final Specimen received for Influenza A/B Molecular testing Assess/Plan/Problems-Billing Assessment: This is a 57 y/o homeless male who presented to ED with c/o increased leg edema , increased abdominal girth with known history of chronic ETOH abuse admitted for decompensated liver cirrhosis with no prior active medical care. - Patient Problems (1) Ascites due to alcoholic cirrhosis Code(s): K70.31 - ALCOHOLIC CIRRHOSIS OF LIVER WITH ASCITES SNOMED Code(s): 4555599457615367 Comment: - S/P paracentesis 02/01 (3 L); 02/02/18 (3.5 L) and again on 02/04/18 - Contineu lasix 40mg daily and monitor creat - Midodrine BID - therapeutic taps and albumin infusion PRN - I/Os and daily weights (2) Electrolyte abnormality Current Visit: Yes Status: Acute Code(s): E87.8 - OTH DISORDERS OF ELECTROLYTE AND FLUID BALANCE, NEC SNOMED Code(s): 326199156 Comment: - Continue to replete. (3) Homeless Code(s): Z59.0 - HOMELESSNESS SNOMED Code(s): 99736017 Comment: - Patient has refused STR, refused to be discharge to the mission and was apparently verbally abusinve with the advocate today when he was readied for discharge to a local hotel - Patient remains stable for discharge - to coordinate plan with [facility], likely Thursday - Patient has threatened to leave AMA multiple times today, suspect he will not be compliant with any plan offered to him (4) Hypoalbuminemia Code(s): E88.09 - [facility] DISORDERS OF PLASMA-PROTEIN METABOLISM, NEC SNOMED Code( s): 601350389 Comment: - 2/2 liver failure - Will need albumin infusions with taps and may need more frequently - [place]ldefer to GI recommendations (5) Hypophosphatemia Code(s): E83.39 - OTHER DISORDERS OF PHOSPHORUS METABOLISM SNOMED Code(s): 6211944 Comment: - Monitor and replete PRN (6) Urinary retention Code(s): R33.9 - RETENTION OF URINE, UNSPECIFIED SNOMED Code(s): 461439965 Comment: - continue flomax, some improvement noted - refused Strong and straight cath on 02/10/18 (7) DVT prophylaxis Code(s): YPB3480 - SNOMED Code(s): 465433714 Comment: - HSQ discontinued, platelets are low and patient is ambulatory (8) Full code status Current Visit: Yes Status: Acute Code(s): Z78.9 - OTHER SPECIFIED HEALTH STATUS SNOMED Code(s): 154676881 Status and Disposition: Patient should have been discharged yesterday but his social/homeless issues continue to present a problem for discharge planning. Appreciate recs from , but it appears the patient cannot be safely discharged to [facility] because [facility] is closed today. Goal for Thursday. Discharge summeary has been completed and medications sent to patient's pharmacy.
[2018-02-12] MEDS: Furosemide TAB* 20 MG PO SCH (16:04)
[2018-02-12] MEDS: Spironolactone TAB* 25 MG PO SCH (21:14)
[2018-02-12] MEDS: Hydrocortisone 1% CREAM* 30 GM TUBE TOPICAL PRN (21:16)
[2018-02-12] MEDS: Melatonin 3 MG TAB PO PRN (21:26)
--- NOTE | 2018-02-12 22:23 | DS ---
CC: Dr. Judi Gonzalez; Dr. Walter; Dr. Lainez; Dr. Caro Funes, [facility] * DISCHARGE SUMMARY: DATE OF ADMISSION: 02/01/18 DATE OF DISCHARGE: 02/12/18 ATTENDING PHYSICIAN: Dr. Judi Gonzalez. MY ATTENDING FOR TODAY: Dr. Duane Flowers.* (DICTATED BY ANN MARIE JONES, [place]) CONSULTANTS: Dr. Walter and Dr. Lainez. HOSPITAL COURSE: This is a 57-year-old male patient with a history of alcohol abuse and alcoholic cirrhosis of the liver, who presented to the emergency department with a complaint of abdominal distention. The patient is homeless, was living in the area known as [facility]. The patient states that he was having some shortness of breath with the increase in his abdominal girth. The patient at that time was drinking a bottle of gin with beer daily. The patient was admitted for increasing ascites, alcoholic hepatitis. Please refer to admission H and P on that date for further details. The patient was seen again by GI and also by Surgery. The patient did have therapeutic taps completed. First paracentesis was on 02/01/18, removing 3 L; on 02/02/18, removing 3.5 L; again on 02/04/18. The patient was placed on furosemide 40 mg b.i.d. initially; however, his creatinine was rising. Lasix was adjusted at that point. He was placed on midodrine and also spironolactone. He is having some leaking from his paracentesis sites and has ostomy bag over the wounds, still appears to be largely distended. However, at this point, the patient does not qualify for transplant list secondary to his recent EtOH abuse, also the patient has many social issues, being homeless. Social Work is involved at this time working on safe plan for him. Of significant note, his MELD score is approximately 26 giving him a 19.6% mortality risk in the next 30 days. The patient will also need some hepatology followup and a referral to a transplant center if he can remain sober. At this point, today, the patient is essentially stable. He does have some continued electrolyte disturbances; however, he should pursue outpatient paracentesis, albumin infusions as needed, and he will be following up with the [facility]. DISCHARGE DIAGNOSES: 1. Ascites due to alcoholic cirrhosis. 2. Homelessness. 3. Hypophosphatemia, continued to be repleted. 4. Hypoalbuminemia secondary to liver failure, will need continued infusions. 5. Urinary retention. The patient was started on Flomax. DISCHARGE MEDICATIONS: Include: 1. Thiamine 100 mg p.o. daily. 2. Flomax 0.4 mg daily. 3. Spironolactone 100 mg in the evening. 4. Omeprazole 20 mg daily. 5. Multivitamin 1 tablet daily. 6. Midodrine 5 mg p.o. b.i.d. 7. Lasix 40 mg daily. 8. Folic acid 1 mg p.o. daily. REVIEW OF SYSTEMS: A 10-point review of systems is negative except as noted in the HPI. PHYSICAL EXAMINATION: The patient is alert, anxious, but in no acute distress. Vital signs are blood pressure 110/74, heart rate 106, respiratory rate 16, O2 saturation 99% on room air with a temperature of 97.8. HEENT: The patient is atraumatic, normocephalic. PERRLA with nonicteric sclerae. Oral mucosa is moist. Dentition is poor. Neck is supple, nontender. No JVD noted. No carotid bruits auscultated. Cardiovascular: S1, S2 present. Mildly tachycardic. No murmurs, gallops, or rubs noted. Lungs are diminished bilaterally at the bases. No rhonchi or rales noted. No wheezing. Abdomen is large, protuberant, distended, tympanic. Positive bowel sounds in all 4 quadrants, hypoactive in nature. is deferred. Musculoskeletal: There is no clubbing, no cyanosis, and no edema. He has +2 distal pulses. He has a steady gait, ambulating without difficulty, range of motion. Motor and sensation are intact. Neurologic: Grossly intact with no focality. Psychiatric: He is cooperative, not always appropriate, but again no acute psychiatric issues noted. LABORATORY DATA: WBC 10.8, RBC 2.99, hemoglobin 10.3, hematocrit 30, platelets 115. Sodium 130; potassium 4.5; chloride 100; CO2 26; BUN 15; creatinine 1.34; GFR 54.8; glucose 97; phosphorus 2.2, repleted; calcium 8.1. Bilirubin 16.90, trending down from 19.10; AST 82; ALT 26; alk phos 139. Protein 5.4, albumin 2.7. Urinalysis is negative for acute infective process. Peritoneal fluid from multiple taps shows no acute infective process and cultures are negative. Hepatitis panel is nonreactive. Influenza A and B are also negative. DISPOSITION: After much discussion with Social Work and Case Management on what the safest plan of care is for the patient considering his homeless situation, the patient does have an advocate who is currently at the bedside, who has agreed that the patient will be staying at a local motel [place] and will assist the patient in his followups. DISCHARGE INSTRUCTIONS: Followups will be with the [facility] here at [facility]. He has an appointment dated for 02/15/18 at 10: 40 in the morning. We strongly suggest he follow up. Visiting nurses have been made for referral; however, with not having the patient in a permanent home situation, this is something that will need to be worked on as well. He should also see Dr. Sharath Lainez or an associate from his group within the next 4 to 7 days. This can be arranged after the patient sees [facility] and it can be determined how often he will need therapeutic taps and albumin infusion. The patient was discharged in stable condition. All questions were answered. Medications were sent to [facility]. The patient stated his understanding of his discharge plan and followups. TIME SPENT: In excess of 35 minutes interfacing with the patient, Case Management, and social workers in this patient's care. ANN MARIE JONES NP [id number]/CPS #: [id number] SONALI
[2018-02-13] MEDS: Potassium Chlor TAB* 20 MEQ TAB.ER PO SCH (08:09)
[2018-02-13] MEDS: Tamsulosin CAP* 0.4 MG PO SCH (08:09)
[2018-02-13] MEDS: Furosemide TAB* 40 MG PO SCH (08:10)
[2018-02-13] MEDS: Folic Acid TAB* 1 MG PO SCH (08:10)
[2018-02-13] MEDS: Thiamine TAB* 100 MG TAB PO SCH (08:10)
[2018-02-13] MEDS: Omeprazole CAP* 20 MG PO SCH (08:10)
[2018-02-13] MEDS: CMCS: Midodrine (NF) 5 MG TAB PO SCH ×2 (08:10→20:27)
[2018-02-13] MEDS: Multivitamins/Minerals TAB PO SCH (08:10)
--- NOTE | 2018-02-13 14:30 | PN ---
Subjective Date of Service: 02/13/18 Interval History: Mr. Norris reports feeling fine today. He is still anxious to leave, though does not want to have to return to the homeless detention and only wants to be d/c 'd when he has a hotel room to return to. He has a lot of hostility towards many of the staff at [employer] and feels as though they are not willing to help him. He denies pain. He is still using 2 ostomy bags to collect residual drainage over old paracentesis sites. He has a significant knowledge deficit about his diagnosis and prognosis. He reported that his niece is planning on donating "half a liver" to him. He denies CP, SOB, N/V/D, dizziness. Family History: Unchanged from Admission Social History: Unchanged from Admission Past Medical History: Unchanged from Admission Objective Active Medications: Al Hydrox/Mg Hydrox/Simethicone (Maalox Plus*) 30 ml PO Q6H PRN INDIGESTION Albuterol (Ventolin 2.5 Mg/3 Ml Neb.Kiara*) 2.5 mg INH Q2H PRN SOB/WHEEZING Folic Acid (Folvite Tab*) 1 mg PO DAILY [facility]REE Furosemide (Lasix Tab*) 40 mg PO DAILY SREE Furosemide (Lasix Tab*) 20 mg PO 1700 SREE Hydrocortisone (Hytone Cream 1%*) 1 applic TOPICAL TID PRN ITCHING Melatonin (Melatonin) 3 mg PO BEDTIME PRN SLEEP Midodrine (Midodrine (Nf)) 5 mg PO BID [facility]; Protocol Multivitamins/Minerals (Theragran/Minerals Tab*) 1 tab PO DAILY [facility] Omeprazole (Prilosec Cap*) 20 mg PO DAILY [facility] Potassium Chloride (Klor Con Er Tab*) 40 meq PO DAILY [facility] Spironolactone (Aldactone Tab*) 100 mg PO BEDTIME [facility]REE Tamsulosin HCl (Flomax Cap*) 0.4 mg PO DAILY [facility]REE Thiamine HCl (Vitamin B-1 Tab*) 100 mg PO DAILY [facility] Vital Signs - 8 hr 02/13/18 02/13/18 02/13/18 07:10 07:58 08:01 Temperature 98.7 F Pulse Rate 119 87 Respiratory 16 18 Rate Blood Pressure 101/68 (mmHg) O2 Sat by Pulse 100 Oximetry 02/13/18 10:57 Temperature 97.8 F Pulse Rate 105 Respiratory 16 Rate Blood Pressure 114/72 (mmHg) O2 Sat by Pulse 100 Oximetry Oxygen Devices in Use Now: None Appearance: Middle-aged male sitting in bed in NAD Eyes: - - Scleral icterus present Ears/Nose/Mouth/Throat: Mucous Membranes Moist Neck: NL Appearance and Movements; NL JVP, Trachea Midline Respiratory: Symmetrical Chest Expansion and Respiratory Effort, Clear to Auscultation Cardiovascular: NL Sounds; No Murmurs; No JVD, RRR Abdominal: - - Nontender; Distended with significant ascites Extremities: No Edema, No Clubbing, Cyanosis Skin: No Rash or Ulcers Neurological: Alert and Oriented x 3, NL Sensation, NL Gait Lines/Tubes/Other Access: Clean, Dry and Intact Peripheral IV Nutrition: Taking PO's Result Diagrams: 02/12/18 08:37 02/12/18 08:37 Assess/Plan/Problems-Billing Assessment: This is a 57 y/o homeless male who presented to ED with c/o increased leg edema , increased abdominal girth with known history of chronic ETOH abuse admitted for decompensated liver cirrhosis with no prior active medical care. - Patient Problems (1) Ascites due to alcoholic cirrhosis Current Visit: Yes Status: Acute Code(s): K70.31 - ALCOHOLIC CIRRHOSIS OF LIVER WITH ASCITES SNOMED Code(s): 7434707744780239 Comment: - S/P paracentesis 02/01 (3 L); 02/02/18 (3.5 L) and again on 02/04/18 - Therapeutic paracentesis and albumin infusion PRN - I/Os and daily weights - Continue lasix 40mg daily, midodrine - D/c lasix 20mg in the evening d/t rising creatinine; will continue to trend and may need further dose adjustments (2) Liver cirrhosis, alcoholic Current Visit: Yes Status: Acute Code(s): K70.30 - ALCOHOLIC CIRRHOSIS OF LIVER WITHOUT ASCITES SNOMED Code(s): 747672788 Comment: - Decompensated alcoholic cirrhosis - MELD score 29 indicating 19.6% mortality risk in the next 3 months - Continue multivitamin, thiamine, folate - Patient needs better social support and abstinence from ETOH at least 6 months - Will need close Hepatology f/u and referral to a transplant center, though he may not make another 6 months - Will need close GI evaluation and f/u (3) Homeless Current Visit: Yes Status: Acute Code(s): Z59.0 - HOMELESSNESS SNOMED Code (s): 89944957 Comment: - Patient has refused STR, refused to be [facility] the [facility] and was apparently verbally abusinve with the advocate when he was readied for discharge to a local hotel - to coordinate plan with [facility], likely Thursday (4) Hypophosphatemia Current Visit: Yes Status: Acute Code(s): E83.39 - OTHER DISORDERS OF PHOSPHORUS METABOLISM SNOMED Code(s): 5053104 Comment: - Replete today - Continue to trend (5) DVT prophylaxis Current Visit: Yes Status: Acute Code(s): NND6608 - SNOMED Code(s): 430615268 Comment: - Ambulation; heparin SQ d/c'd d/t thrombocytopenia (6) Full code status Current Visit: Yes Status: Acute Code(s): Z78.9 - OTHER SPECIFIED HEALTH STATUS SNOMED Code(s): 340068139 Status and Disposition: Patient should have been discharged yesterday but his social/homeless issues continue to present a problem for discharge planning. Appreciate recs from , but it appears the patient cannot be safely discharged to [facility] because [facility] is closed today. Goal for Thursday. Discharge summary has been completed and medications sent to patient's pharmacy.
[2018-02-13] MEDS ORDERED: Potassium Acid Phosphate TAB* 500 MG PO ONE (14:33)
[2018-02-13] MEDS: Spironolactone TAB* 25 MG PO SCH (20:26)
[2018-02-13] MEDS: Melatonin 3 MG TAB PO PRN (22:41)
[2018-02-14 06:40] LABS: INR 1.41 (0.77-1.02)
[2018-02-14] MEDS: Furosemide TAB* 40 MG PO SCH (07:46)
[2018-02-14] MEDS: Thiamine TAB* 100 MG TAB PO SCH (07:46)
[2018-02-14] MEDS: Omeprazole CAP* 20 MG PO SCH (07:46)
[2018-02-14] MEDS: Potassium Chlor TAB* 20 MEQ TAB.ER PO SCH (07:46)
[2018-02-14] MEDS: CMCS: Midodrine (NF) 5 MG TAB PO SCH ×2 (07:46→21:42)
[2018-02-14] MEDS: Multivitamins/Minerals TAB PO SCH (07:46)
[2018-02-14] MEDS: Tamsulosin CAP* 0.4 MG PO SCH (07:47)
[2018-02-14] MEDS: Folic Acid TAB* 1 MG PO SCH (07:47)
--- NOTE | 2018-02-14 14:39 | PN ---
Subjective Date of Service: 02/14/18 Interval History: Mr. Norris is anxious about d/c tomorrow. He states he needs to get a hotel room and is quite anxious for social work to remedy his living situation. He has no physical complaints. His bilat abdominal tap sites are not draining, but the patient is adamant about keeping ostomy bags in place for another week. He continues to mention that he is going to receive a liver transplant from his niece and is lacking knowledge about the transplant process. He denies CP, SOB, N/V/D, dizziness. Nursing reports he is refusing to have his legs wrapped in candace as they are no longer edematous. Family History: Unchanged from Admission Social History: Unchanged from Admission Past Medical History: Unchanged from Admission Objective Active Medications: Al Hydrox/Mg Hydrox/Simethicone (Maalox Plus*) 30 ml PO Q6H PRN INDIGESTION Albuterol (Ventolin 2.5 Mg/3 Ml Neb.Kiara*) 2.5 mg INH Q2H PRN SOB/WHEEZING Folic Acid (Folvite Tab*) 1 mg PO DAILY [facility]REE Furosemide (Lasix Tab*) 40 mg PO DAILY [facility] Hydrocortisone (Hytone Cream 1%*) 1 applic TOPICAL TID PRN ITCHING Melatonin (Melatonin) 3 mg PO BEDTIME PRN; Protocol SLEEP Midodrine (Midodrine (Nf)) 5 mg PO BID [facility]REE; Protocol Multivitamins/Minerals (Theragran/Minerals Tab*) 1 tab PO DAILY [facility]REE Omeprazole (Prilosec Cap*) 20 mg PO DAILY [facility] Potassium Chloride (Klor Con Er Tab*) 40 meq PO DAILY [facility]REE Spironolactone (Aldactone Tab*) 100 mg PO BEDTIME SREE Tamsulosin HCl (Flomax Cap*) 0.4 mg PO DAILY SREE Thiamine HCl (Vitamin B-1 Tab*) 100 mg PO DAILY SREE Vital Signs - 8 hr 02/14/18 02/14/18 07:32 07:57 Temperature 98.4 F Pulse Rate 114 Respiratory 16 16 Rate Blood Pressure 115/69 (mmHg) O2 Sat by Pulse 99 Oximetry Oxygen Devices in Use Now: None Appearance: Middle-aged male sitting in bed in NAD Eyes: - - Scleral icterus present Ears/Nose/Mouth/Throat: Mucous Membranes Moist Neck: NL Appearance and Movements; NL JVP Respiratory: Symmetrical Chest Expansion and Respiratory Effort, Clear to Auscultation Cardiovascular: NL Sounds; No Murmurs; No JVD, RRR Abdominal: NL Sounds; No Tenderness; No Distention Extremities: No Edema Skin: No Rash or Ulcers Neurological: Alert and Oriented x 3 Lines/Tubes/Other Access: Clean, Dry and Intact Peripheral IV Nutrition: Taking PO's Result Diagrams: 02/12/18 08:37 02/14/18 05:54 Assess/Plan/Problems-Billing Assessment: This is a 57 y/o homeless male who presented to ED with c/o increased leg edema , increased abdominal girth with known history of chronic ETOH abuse admitted for decompensated liver cirrhosis with no prior active medical care. - Patient Problems (1) Ascites due to alcoholic cirrhosis Current Visit: Yes Status: Acute Code(s): K70.31 - ALCOHOLIC CIRRHOSIS OF LIVER WITH ASCITES SNOMED Code(s): 8632933363963478 Comment: - S/P paracentesis 02/01 (3 L); 02/02/18 (3.5 L) and again on 02/04/18 - Therapeutic paracentesis and albumin infusion PRN - I/Os and daily weights - Continue lasix 40mg daily, midodrine - D/c lasix 20mg in the evening d/t rising creatinine (2) Liver cirrhosis, alcoholic Current Visit: Yes Status: Acute Code(s): K70.30 - ALCOHOLIC CIRRHOSIS OF LIVER WITHOUT ASCITES SNOMED Code(s): 324540973 Comment: - Decompensated alcoholic cirrhosis - MELD score 29 indicating 19.6% mortality risk in the next 3 months - Continue multivitamin, thiamine, folate - Patient needs better social support and abstinence from ETOH at least 6 months - Will need close Hepatology f/u and referral to a transplant center, though he may not make another 6 months - Will need close GI evaluation and f/u (3) Homeless Current Visit: Yes Status: Acute Code(s): Z59.0 - HOMELESSNESS SNOMED Code (s): 87040695 Comment: - Patient has refused STR, refused to be [facility] to the [facility] and was apparently verbally abusinve with the advocate when he was readied for discharge to a local hotel - to coordinate plan with DSS, likely Thursday (4) Hypophosphatemia Current Visit: Yes Status: Acute Code(s): E83.39 - OTHER DISORDERS OF PHOSPHORUS METABOLISM SNOMED Code(s): 3194695 Comment: - Start Kphos BID (5) DVT prophylaxis Current Visit: Yes Status: Acute Code(s): HWZ3162 - SNOMED Code(s): 397698955 Comment: - Ambulation; heparin SQ d/c'd d/t thrombocytopenia (6) Full code status Current Visit: Yes Status: Acute Code(s): Z78.9 - OTHER SPECIFIED HEALTH STATUS SNOMED Code(s): 727299933 Status and Disposition: Patient should have been discharged yesterday but his social/homeless issues continue to present a problem for discharge planning. Appreciate recs from , but it appears the patient cannot be safely discharged to [facility] because [facility] is closed today. Goal for Thursday. Discharge summary has been completed and medications sent to patient's pharmacy.
[2018-02-14] MEDS: Potassium Acid Phosphate TAB* 500 MG PO SCH (21:41)
[2018-02-14] MEDS: Spironolactone TAB* 25 MG PO SCH (21:41)
[2018-02-15 07:13] LABS: EGFR Non-African American 54.8 (>60)
[2018-02-15 08:22] VITALS: BP 109/73
[2018-02-15] MEDS: Potassium Chlor TAB* 20 MEQ TAB.ER PO SCH (08:29)
[2018-02-15] MEDS: Folic Acid TAB* 1 MG PO SCH (08:30)
[2018-02-15] MEDS: Tamsulosin CAP* 0.4 MG PO SCH (08:30)
[2018-02-15] MEDS: Potassium Acid Phosphate TAB* 500 MG PO SCH (08:30)
[2018-02-15] MEDS: CMCS: Midodrine (NF) 5 MG TAB PO SCH (08:30)
[2018-02-15] MEDS: Furosemide TAB* 40 MG PO SCH (08:30)
[2018-02-15] MEDS: Thiamine TAB* 100 MG TAB PO SCH (08:30)
[2018-02-15] MEDS: Multivitamins/Minerals TAB PO SCH (08:30)
[2018-02-15] MEDS: Omeprazole CAP* 20 MG PO SCH (08:30)
--- NOTE | 2018-02-16 13:01 | DS ---
DISCHARGE SUMMARY: ADDENDUM: The report was dictated by Diane Livingston on 02/12/18. ATTENDING PHYSICIAN: Dr. Christal Kwan.* (DICTATED BY TANIA GUILLORY NP) Mr. Norris remained hospitalized through the weekend as there was difficulty setting up a living situation for him through the [employer] , and therefore, there was not a safe plan for discharge. He was requesting that they provide him a hotel room due to his medical condition so that he did not have to stay at the homeless skilled nursing. His weekend was relatively uneventful and he has no concerns or questions related to discharge. His phosphorous level was slightly low and he was started on K-Phos which he has been prescribed to continue at discharge. NEW MEDICATION: 1. K-Phos 500 mg p.o. b.i.d. He has a followup appointment with the [facility] on 02/18/18 at 8: 15 a.m. Additionally, he has an appointment with Dr. Lainez on 03/02/18 at 2:15 p.m. The patient has been advised to return to the emergency room for any worsening of symptoms, shortness of breath, lightheadedness, dizziness, chest discomfort, high fevers, chills, night sweats, loss of consciousness, or any other worrisome signs or symptoms. TIME SPENT: Approximately 35 minutes was spent on this discharge, greater than half of that time spent [id number] with the patient discussing discharge plans and instructions. TANIA GUILLORY NP [id number]/[facility] #: [id number] [facility]
== END 2018-02-15 14:00 | disposition home health service (06) | DRG 280 ==
LOC: ED 08:19 → MEDTELE 10:36 → MED 02-02 17:19
PROVIDERS: ADMIT Internal Medicine; ATTEND Hospitalist
PROC: 0W9G3ZZ Drainage of Peritoneal Cavity, Percutaneous Approach (ICD-10-PCS; 2018-02-01)
PROC: 0W9G3ZZ Drainage of Peritoneal Cavity, Percutaneous Approach (ICD-10-PCS; principal; 2018-02-02 13:30)
PROC: 0W9G3ZZ Drainage of Peritoneal Cavity, Percutaneous Approach (ICD-10-PCS; 2018-02-05)
PROC: 0T9B70Z Drainage of Bladder with Drainage Device, Via Natural or Artificial Opening (ICD-10-PCS; 2018-02-10)
DX: K70.11 Alcoholic hepatitis with ascites (principal); K76.6 Portal hypertension; K70.31 Alcoholic cirrhosis of liver with ascites; F10.20 Alcohol dependence, uncomplicated; F17.210 Nicotine dependence, cigarettes, uncomplicated; K72.90 Hepatic failure, unspecified without coma; R00.0 Tachycardia, unspecified; E88.09 Other disorders of plasma-protein metabolism, not elsewhere classified; D53.9 Nutritional anemia, unspecified; E83.39 Other disorders of phosphorus metabolism; R33.9 Retention of urine, unspecified; D69.6 Thrombocytopenia, unspecified; E87.6 Hypokalemia; Z88.0 Allergy status to penicillin; Z83.79 Family history of other diseases of the digestive system; Z59.0 Homelessness
CPT/HCPCS: 36415; 49082; 71045; 74177; 80048; 80053; 80061; 80074; 80076; 80320; 81003; 82042; 82150; 82247; 82945; 83605; 83615; 83690; 83735; 83880; 84100; 84157; 84484; 85014; 85018; 85025; 85045; 85060; 85610; 85730; 86140; 87040; 87070; 87205; 87899; 89051; 93005; 99284; A9270-GY; G0480; J0456; J0696; J1644; J1940; J2270; J3480; J3490; P9045; P9047; Q9967

== ENCOUNTER → 2018-03-01 12:01 | Day surgery (SDC) | payer OTHER ==
[~2018-03-01 12:01] MED LIST: Lidocaine 1% INJ* 10 MG/ML 30 ML SDV ONE
--- NOTE | 2018-03-02 05:47 | OP ---
DATE OF OPERATION: 03/01/18 - [facility] DATE OF : 58 SURGEON: Patrick Ritter MD. PRE-OP DIAGNOSIS: Ascites. POST-OP DIAGNOSIS: Ascites. OPERATIVE PROCEDURE: Paracentesis. INDICATIONS FOR PROCEDURE: Ascites with history of drainage in the past. Risks of bleeding, infection, injury to the bowel versus other intraabdominal contents were explained. He seemed understanding and agreed to the procedure and all questions were answered. DESCRIPTION OF PROCEDURE: In the procedure room, on the stretcher in a supine position, the abdomen was prepped and draped in a sterile fashion. Time-out was performed noting correct patient and procedure. Ultrasound was performed on the abdomen prior to prepping and a place was chosen in the right lateral lower abdomen, where a large amount of fluid was noted. The skin and abdominal wall were anesthetized with plain lidocaine. The needle was passed through the skin and abdominal wall into the peritoneal cavity and straw colored fluid was aspirated. The catheter was advanced and needle was withdrawn and the catheter was connected in succession to vacuum bottles and approximately 6 L of fluid was aspirated. The catheter was removed. The skin was closed with glue. EBL is minimal/zero. He tolerated the procedure well. He was discharged in stable condition. [id number]/[facility] #: [id number] MTDD
== END | disposition home or self-care (01) ==
LOC: OR 12:01
PROVIDERS: ATTEND Surgery
DX: R18.8 Other ascites (principal); K75.9 Inflammatory liver disease, unspecified; F17.210 Nicotine dependence, cigarettes, uncomplicated
CPT/HCPCS: 49082

== ENCOUNTER → 2018-03-22 09:55 | Day surgery (SDC) | payer OTHER ==
--- NOTE | 2018-03-22 20:49 | OP ---
DATE OF OPERATION: 03/22/18 - [facility] DATE OF : 58 SURGEON: Donell Walter MD RADIOLOGY DIRECTOR: None. ANESTHESIA: 1 % lidocaine plain. PRE-OP DIAGNOSIS: Alcoholic liver cirrhosis with ascites. POST-OP DIAGNOSIS: Alcoholic liver cirrhosis with ascites. OPERATIVE PROCEDURE: Paracentesis, with drainage of 6.5 L of clear straw- colored fluid. INDICATIONS: Mr. Semaj Nixon is a 57-year-old gentleman, well known to the surgical service for previous paracenteses, who has alcoholic liver disease with recurrent ascites. He develops abdominal distention with discomfort and a therapeutic paracentesis has been requested. His last paracentesis was about 3 weeks ago. He is on no anticoagulation. He is allergic to PENICILLIN. Procedure was discussed with the patient and the risks of, but not limited to, bleeding, infection, discomfort, bowel injury, with subsequent sepsis requiring aggressive treatment were all explained. ESTIMATED BLOOD LOSS: Minimal. SPECIMENS: None. COMPLICATIONS: None. DRAINS: None. DESCRIPTION OF PROCEDURE: Written informed consent was obtained, the abdomen was marked with indelible ink. Antibiotics were not administered. He was placed in the slightly sitting upright supine position. A time-out verification was completed. The bedside ultrasound machine was then used to interrogate the lower abdomen and both the left and the right lower quadrants and it appeared that there was an adequate amount of fluid in the right lower quadrant with a window suitable for paracentesis. This area was prepped and draped in the usual sterile fashion. 1% lidocaine was infiltrated in the skin and subsequently in the entire abdominal wall and a small carolina in the skin was made with a 11-blade knife. An 8-Cypriot catheter over the needle was then passed through the abdominal wall using a "Z" technique until straw-colored yellow fluid was aspirated and the catheter was inserted and the needle pulled back. I then proceeded to drain 6.5 L of yellow straw-colored fluid using a combination of the vacuum bottles, as well as the 50 cc syringe. Once there was no further fluid to drain, the catheter was removed and firm pressure was held. Skin glue was used on the skin and a sterile occlusive dressing was applied. The patient tolerated the procedure well. [id number]/[facility] #: [id number] [facility]
== END | disposition home or self-care (01) ==
LOC: OR 09:55
PROVIDERS: ATTEND Surgery
DX: K70.31 Alcoholic cirrhosis of liver with ascites (principal); R10.9 Unspecified abdominal pain; Z72.0 Tobacco use
CPT/HCPCS: 49082